=== PATIENT | female | born 1965 | race Caucasian/White ===

== ENCOUNTER → 2018-01-04 07:12 | Outpatient (CLI) | payer BC, SELFPAY ==
[2018-01-04 08:01] LABS: Hemoglobin A1C% w Est Avg Glu 7.1 % (4.0-6.0)
[2018-01-04 08:15] LABS: Alanine Aminotransferase 49 IU/L (9-52); Albumin 4.4 g/dL (3.5-5.0); Albumin Globulin Ratio 1.8 (1.0-2.8); Alkaline Phosphatase 77 U/L (38-126); Aspartate Aminotransferase 29 IU/L (14-36); Bilirubin Total 0.6 mg/dL (0.2-1.3); Blood Urea Nitrogen 13 mg/dL (7-17); Calcium 9.5 mg/dL (8.4-10.2); Carbon Dioxide 26 mmol/L (22-32); Chloride 100 mmol/L (98-107); Estimated Glomerular Filt Rate > 60.0 mL/min (>60); Globulin 2.5 g/dL (1.7-4.1); Glucose 143 mg/dL (70-100); HEMOLYSIS < 15 (0-50); Potassium 4.4 mmol/L (3.4-5.1); Sodium 140 mmol/L (137-145); Total Protein 6.9 g/dL (6.3-8.2)
== END ==
PROVIDERS: PCP Nurse Practitioner Family; Visit Provider Family Medicine
DX: E11.9 Type 2 diabetes mellitus without complications (principal); E78.2 Mixed hyperlipidemia
CPT/HCPCS: 36415; 80053; 83036

== ENCOUNTER → 2018-04-08 07:31 | Outpatient (CLI) | payer BC, SELFPAY ==
[2018-04-08 08:09] LABS: Hemoglobin A1C% w Est Avg Glu 7.4 % (4.0-6.0)
[2018-04-08 08:20] LABS: Cholesterol 116 mg/dL (140-199); HDL Cholesterol 35 mg/dL (40-60); LDL Cholesterol Calculated 44 mg/dL (<100); Triglycerides 187 mg/dL (35-150)
[2018-04-08 08:52] LABS: TSH w/ Reflex to FT4 2.05 uIU/mL (0.47-4.68)
[2018-05-03 13:31] VITALS: BMI 36.1
== END ==
PROVIDERS: Visit Provider Nurse Practitioner Family
DX: E11.9 Type 2 diabetes mellitus without complications (principal); E78.2 Mixed hyperlipidemia; E03.9 Hypothyroidism, unspecified
CPT/HCPCS: 36415; 80061; 83036; 84443

== ENCOUNTER → 2018-05-03 10:57 | Outpatient (CLI) | payer BC, SELFPAY ==
--- NOTE | 2018-05-24 10:46 | DIET.PN ---
DIABETES Nutrition Follow Up:? ASSESS:???52 yof? referred for type 2 diabetes nutrition counseling. Pt recently starting reading the Obesity Code. Since last visit pt has cut out all sugar and starches. She has increased her protein and vegetable intake. Reports weight loss, better control of blood glucose, and more overall energy. ? LABS: Per pt report:? a1c: 7.4 T TC: 116 LDL:44 HDL: 35 ? MEDS:?? metformin 1000mg BID Victoza QD ? DIET: Has cut out all sugar/starch. Increased pro, veg, and fat. ? Weight: 224.8 (from 231) Ht:? 67 ? Exercise:? Walking NUTRITION DX ? (1) Altered Nutrition related labs related to impaired glucose metabolism, lack of previous exposure to accurate nutrition information as evidenced by pt report, dx of diabetes, previous diet high in refined carbohydrates.? INTERVENTION(s): ??? (1) Reviewed pathophysiology of diabetes and impact of nutrition/diet on blood sugar control.? (2)Reviewed food record. Discussed avoiding replacing starches with high saturated fat substitutes. Discussed healthy fat snack ideas. ? (3) Reviewed lab values and blood glucose log. Numbers continue to decline with dietary changes and increased activity. Pt Goals: (1) Reduced A1c through dietary changes and increased activity (2) Reduced medication amount. MONITOR/EVALUATE: Pt will schedule follow up in 2 months following new labs.
== END ==
PROVIDERS: Visit Provider Nurse Practitioner Family
DX: I10 Essential (primary) hypertension (principal)
CPT/HCPCS: 97802

== ENCOUNTER → 2018-05-17 15:28 | Outpatient (CLI) | payer BC, SELFPAY ==
--- NOTE | 2018-05-17 | DI.MG.S_ITS ---
BILATERAL DIGITAL SCREENING MAMMOGRAM 3D/2D WITH CAD: 05/17/2018 CLINICAL: Routine screening. Comparison is made to exams dated: 05/07/2017 mammogram, 05/01/2016 mammogram, and 04/01/2015 mammogram - [facility]. The tissue of both breasts is predominantly fatty. Current study was also evaluated with a Computer Aided Detection (CAD) system. No significant masses, calcifications, or other findings are seen in either breast. There has been no significant interval change. IMPRESSION: NEGATIVE There is no mammographic evidence of malignancy. A 1 year screening mammogram is recommended. This exam was interpreted at Station ID: [id number]. NOTE: For mammograms, a report in lay terms will be sent to the patient. Approximately 15% of breast malignancies will not be visualized mammographically. In the management of a palpable breast mass, a negative mammogram must not discourage biopsy of a clinically suspicious lesion. Electronically Signed By: Tamir diallo/shawn:05/19/2018 02:55:07 copy to: Lexis Valenzuela letter sent: Normal Exam ACR BI-RADS Category 1: Negative 3341F
== END ==
PROVIDERS: Family Provider Obstetrics & Gynecology; Visit Provider Registered Nurse
DX: Z12.31 Encounter for screening mammogram for malignant neoplasm of breast (principal)
CPT/HCPCS: 77063; 77067

== ENCOUNTER → 2018-05-24 10:03 | Outpatient (CLI) | payer BC, SELFPAY | PROVIDERS: Family Provider Obstetrics & Gynecology; Visit Provider Nurse Practitioner Family | DX: E11.9 Type 2 diabetes mellitus without complications (principal) | CPT/HCPCS: 97803 ==

== ENCOUNTER → 2018-07-06 09:29 | Outpatient (CLI) | payer BC, SELFPAY ==
[2018-07-06 10:45] LABS: Hemoglobin A1C% w Est Avg Glu 6.3 % (4.0-6.0)
== END ==
PROVIDERS: Family Provider Obstetrics & Gynecology; PCP Registered Nurse; Visit Provider Registered Nurse
DX: E11.9 Type 2 diabetes mellitus without complications (principal)
CPT/HCPCS: 83036

== ENCOUNTER → 2018-12-06 07:25 | Outpatient (CLI) | payer BC, SELFPAY ==
[2018-12-06 08:03] LABS: Hemoglobin A1C% w Est Avg Glu 6.3 % (4.0-6.0)
[2018-12-06 09:37] LABS: Alanine Aminotransferase 29 IU/L (9-52); Albumin 4.2 g/dL (3.5-5.0); Albumin Globulin Ratio 1.7 (1.0-2.8); Alkaline Phosphatase 71 U/L (38-126); Aspartate Aminotransferase 20 IU/L (14-36); Bilirubin Total 0.4 mg/dL (0.2-1.3); Blood Urea Nitrogen 12 mg/dL (7-17); Calcium 9.5 mg/dL (8.4-10.2); Carbon Dioxide 28 mmol/L (22-32); Chloride 101 mmol/L (98-107); Cholesterol 147 mg/dL (140-199); Estimated Glomerular Filt Rate > 60.0 mL/min (>60); Globulin 2.5 g/dL (1.7-4.1); Glucose 115 mg/dL (70-100); HDL Cholesterol 36 mg/dL (40-60); HEMOLYSIS < 15 (0-50); LDL Cholesterol Calculated 68 mg/dL (<100); Potassium 4.8 mmol/L (3.4-5.1); Sodium 138 mmol/L (137-145); Total Protein 6.7 g/dL (6.3-8.2); Triglycerides 213 mg/dL (35-150)
[2018-12-06 10:05] LABS: Thyroid Stimulating Hormone 1.16 uIU/mL (0.47-4.68)
== END ==
PROVIDERS: PCP Registered Nurse; Visit Provider Registered Nurse
DX: E03.9 Hypothyroidism, unspecified (principal); E11.9 Type 2 diabetes mellitus without complications; E78.2 Mixed hyperlipidemia; I10 Essential (primary) hypertension
CPT/HCPCS: 36415; 80053; 80061; 83036; 84443

== ENCOUNTER → 2018-12-09 10:50 | Outpatient (CLI) | payer BC, SELFPAY ==
[2018-12-09 12:37] LABS: Creatinine Urine Random 20.9 mg/dL
[2018-12-09 12:48] LABS: Microalbumi Creatinin Ratio Ur 28.7 ug/mg CR (<30); Microalbumin Urine Random < 0.6 mg/dL (0-1.6)
== END ==
PROVIDERS: PCP Registered Nurse; Visit Provider Registered Nurse
DX: E11.9 Type 2 diabetes mellitus without complications (principal)
CPT/HCPCS: 82043; 82570

== ENCOUNTER 2018-12-27 06:43 | Day surgery (SDC) | payer BC, SELFPAY ==
--- NOTE | 2018-12-27 | PATH_ITS ---
[facility] Accession Number: [id number] . 01 Material submitted: . PART A: colon - COLON BIOPSY AT 30 CM PART B: rectum - RECTUM FLAT LESIONS . 02 Diagnosis: A. Biopsy, Colon at 30 cm: Hyperplastic polyp involving two biopsy fragments. Two polypoid-shaped fragments of colon mucosa associated with prominent mucosal lymphoid aggregates. . B. Biopsies, Rectum: Fragments of rectal mucosa with several prominent mucosal lymphoid aggregates. Negative for evidence of neoplasma and/or significant epithelial hyperplasia. MRV/12/30/2018 . 02 Electronically signed: . Remy Lewis MD, Pathologist NPI- [id number] . 01 Gross description: . Part A: COLON BIOPSY AT 30 CM: Received in formalin are 4 fragment(s) of low, soft tissue measuring 0.2 x 0.2 x 0.2 cm to 0.5 x 0.3 x 0.2 cm which is entirely submitted and submitted entirely in 1 cassette(s) Part B: RECTUM FLAT LESIONS: Received in formalin are multiple fragment(s) of low, soft tissue measuring 0.1 x 0.1 x 0.1 cm to 0.3 x 0.2 x 0.2 cm which is entirely submitted and submitted entirely in 1 cassette(s) /DMC /DMC . 02 Pathologist provided ICD-10: K63.5 . 02 CPT . 229789, 882108 Performed at: [facility] [address] [id number] MD Rod Steele MD Phone: [phone] Performed at: [facility] [address] [place], [place] [id number] MD Natalie Soler MD Phone: [phone]
[2018-12-27 07:27] VITALS: BP 125/76; PULSE 73; RESP 16; TEMP 36.9; O2SAT 95
[2018-12-27 07:30] VITALS: BMI 36.0
[2018-12-27] MEDS: SODIUM CHLORIDE 0.9% 1,000 ML 84 ML IV (07:41)
--- NOTE | 2018-12-27 07:48 | PM.HP.1 ---
History of Present Illness Date Patient Seen: 12/27/18 Time Patient Seen: 07:39 Chief complaint: [id number] Narrative: The patient is a woman here for a screening colonoscopy. This is her 1st exam. Patient History Medical History Depression (Chronic ~1989) Diabetes mellitus (Chronic 2002) GERD (gastroesophageal reflux disease) (Chronic ~1994) Hyperlipidemia (Chronic) Hypertriglyceridemia (Chronic) Hypothyroidism (Chronic ~1994) Rosacea (Chronic) Surgical History Status post endometrial ablation (Resolved ~2010) Status post tonsillectomy and adenoidectomy (Resolved 1983) Family History Father Age: 76 CAD (coronary artery disease) High cholesterol S/P CABG (coronary artery bypass graft) Grandfather CAD (coronary artery disease) CVA (cerebral vascular accident) Grandmother Age: 92 CAD (coronary artery disease) Hypertension Malignant neoplasm of uterus, unspecified site Grandfather Age: 74 CAD (coronary artery disease) Hypertension High cholesterol Grandmother Age: 98 Essential hypertension High cholesterol Social History household members: spouse Smoking Status: Never smoker alcohol intake: never substance use type: does not use Family & Social History Family History Father Age: 76 CAD (coronary artery disease) High cholesterol S/P CABG (coronary artery bypass graft) Grandfather CAD (coronary artery disease) CVA (cerebral vascular accident) Grandmother Age: 92 CAD (coronary artery disease) Hypertension Malignant neoplasm of uterus, unspecified site Grandfather Age: 74 CAD (coronary artery disease) Hypertension High cholesterol Grandmother Age: 98 Essential hypertension High cholesterol Social History: household members spouse Tobacco & Substance use: Smoking Status Never smoker alcohol intake never Meds Home Medications Medication Instructions Recorded Confirmed Type CA PANTOTHENATE/FOLIC ACID/VIT 1 tab PO Q DAY #0 05/31/11 12/27/18 History (MULTIVITAMIN) clobetasol-emollient 1 laila TOPICAL BID PRN #30 gm 05/01/16 12/27/18 Rx zolpidem 10 mg PO HSP #30 tab 10/17/17 12/09/18 Rx nystatin-triamcinolone 1 laila TOPICAL BID #30 gm 10/31/17 12/09/18 Rx omeprazole 20 mg capsule,delayed 20 mg PO QDAY #90 cap 01/08/18 12/09/18 Rx release fluocinolone 0.025 % topical cream 1 applictn TOP BID #15 gram 05/08/18 12/27/18 Rx metformin 1,000 mg tablet 1,000 mg PO BID #180 tab 09/24/18 12/27/18 Rx atorvastatin 20 mg tablet 20 mg PO HS #90 tab 10/16/18 12/27/18 Rx liraglutide 0.6 mg/0.1 mL (18 mg/3 0.6 mg SUBCUT DAILY #9 ml 11/29/18 12/27/18 Rx mL) subcutaneous pen injector levothyroxine 100 mcg tablet 100 mcg PO QDAY #30 tab 12/03/18 12/27/18 Rx Allergies Allergy/AdvReac Type Severity Reaction Status Date / Time No Known Drug Allergies Allergy Verified 12/27/18 07:42 Review of Systems Review of Systems All systems reviewed & are unremarkable except as noted in HPI and below Exam Vital Signs (past 8 hours): - 12/27/18 07:27 Temperature 98.4 F Pulse Rate 73 Respiratory Rate 16 Blood Pressure 125/76 Pulse Oximetry 95 Oxygen Delivery Method Room Air Narrative Exam Narrative: Pleasant cooperative patient no apparent distress. Lungs are clear to auscultation. No rales or rhonchi. Heart regular rate and rhythm no murmur gallop. Abdomen is soft nontender without mass. No obvious hernias. Patient is alert and oriented x3. Assessment & Plan Assessment & Plan narrative: The patient for a screening colonoscopy. I have discussed the procedure with them. Risks of bleeding, perforation which would necessitate major operation, failure to find remove all lesions, the potential tattoo were all discussed. All questions were answered. They wished to proceed.
--- NOTE | 2018-12-27 07:49 | PM.PREOP ---
Pre-operative Note Interval Note History & Physical reviewed/Exam performed by Physician: Yes Changes to H&P: No ASA Class (for procedural sedation): II
--- NOTE | 2018-12-27 08:37 | PM.OP.ENDO ---
Operative Date/Time/Diagnoses Date of procedure: 12/27/18 Time of procedure: 08:37 Pre-op diagnosis: Screening exam for colon cancer Post-op diagnosis: same (Multiple tiny lesions possibly neoplastic) Procedure & Clinicians Study performed: Colonoscopy with cold biopsy Same procedure as scheduled: Yes Indications: Screening due to age 53. This is her 1st exam. Surgeon: Carlos Blanchard Procedure Notes SCOAP/Timeout: Performed Procedure in detail: The patient was placed in the left lateral decubitus position and underwent IV sedation directed by the surgeon consisting of fentanyl and Versed. Digital exam was unremarkable. The scope was inserted and advanced through the rectum into the sigmoid, descending, transverse, and ascending colon. Pressure was applied the patient was repositioned in order to make her way into the cecum. A stiffener was also inserted. The cecum was reached identified by the ileocecal valve and the appendiceal opening. The ileocecal valve was successfully cannulated. The terminal ileum was normal in appearance. The scope was gradually brought out. Small Polypoid lesions were found at 20 to 30 cm(5 of them). These may or may not be neoplastic however. There were quite small. All were placed in the same container due to the proximity to 1 another. When I entered the rectum there was a flat area in which the mucosa looked different than the surrounding mucosa. I decided randomly biopsied this to make sure it was not a flat serrated adenoma or villous adenoma. I strongly suspect this distal normal variant or trauma related to the scope sliding over it. To be certain however I did biopsies. The scope ultimately was retroflexed in the rectum. The appearance was normal. The scope was removed and the patient tolerated the procedure well. Prep was excellent. Scope withdrawal time: 10 min(excludes bx time) Sedation minutes: 37 Findings: polyp Specimen(s): other (Polypoid lesions and rectal biopsy) Complications: none Recommendations: Colonscopy in 5 years (If none of the lesions are neoplastic than 10 years would be more appropriate.) Follow up: as needed Disposition: PACU
[2018-12-27] MEDS: MIDAZOLAM 5 MG/5 ML VIAL IV (08:38)
[2018-12-27] MEDS: fentaNYL 250 MCG/5 ML INJ IV (08:38)
[2018-12-27 08:40] VITALS: BP 129/54; PULSE 73; RESP 10; TEMP 36.8; O2SAT 94
[2018-12-27 08:45] VITALS: BP 112/54; PULSE 74; RESP 11; O2SAT 94
[2018-12-27 08:51] VITALS: BP 118/59; PULSE 75; RESP 12; O2SAT 98
[2018-12-27 08:54] VITALS: BP 106/57; PULSE 75; RESP 16; TEMP 36.3; O2SAT 98
[2018-12-27 09:17] VITALS: BP 110/75; PULSE 67; RESP 16; TEMP 36.1; O2SAT 99
--- NOTE | 2018-12-27 09:23 | SUR.PHASEII ---
stable phase 2, dressed when ready left when ready and in stable condition.
== END 2018-12-27 09:20 | disposition home or self-care (01) ==
PROVIDERS: PCP Registered Nurse; Visit Provider Specialist
PROC: 0DJD8ZZ Inspection of Lower Intestinal Tract, Via Natural or Artificial Opening Endoscopic (ICD-10-PCS; CPT 45378; principal; 2018-12-27 07:45)
DX: Z12.11 Encounter for screening for malignant neoplasm of colon (principal); K63.5 Polyp of colon; E11.9 Type 2 diabetes mellitus without complications; E78.5 Hyperlipidemia, unspecified; E03.9 Hypothyroidism, unspecified; F32.9 Major depressive disorder, single episode, unspecified; Z79.4 Long term (current) use of insulin
CPT/HCPCS: 45380; 99152; 99153; J2250; J3010

== ENCOUNTER → 2019-01-24 09:06 | Outpatient (CLI) | payer BC, SELFPAY ==
[2019-01-24 10:29] LABS: Add Manual Diff / Slide Review NO; Basophils Absolute Auto 0 /uL (0-100); Basophils Percent Auto 0.7 % (0-2); Eosinophils Absolute Auto 200 /uL (0-450); Eosinophils Percent Auto 3.3 % (2-4); Hematocrit 37.6 % (36-46); Hemoglobin 12.9 g/dL (12.0-16.0); Lymphocytes Absolute Auto 1600 /uL (1100-4500); Lymphocytes Percent Auto 29.2 % (25-40); Mean Corpuscular HGB Conc 34.4 % (30-36); Mean Corpuscular Volume 84.3 fL (80-100); Monocytes Absolute Auto 500 /uL (0-900); Monocytes Percent Auto 9.2 % (3-14); Neutrophils Absolute Auto 3100 /uL (1500-7000); Neutrophils Percent Auto 57.6 % (50-75); Platelet Count 222 X10^3/uL (150-400); Red Blood Cell Count 4.46 X10^6/uL (4.0-5.2); Red Cell Distribution Width 13.7 % (11.6-14.8); White Blood Cell Count 5.4 X10^3/uL (4.5-11.0)
[2019-01-24 10:48] LABS: Hemoglobin A1C% w Est Avg Glu 6.5 % (4.0-6.0)
[2019-01-24 11:04] LABS: Alanine Aminotransferase 30 IU/L (9-52); Albumin 4.2 g/dL (3.5-5.0); Albumin Globulin Ratio 1.6 (1.0-2.8); Alkaline Phosphatase 79 U/L (38-126); Amylase 57 U/L (30-110); Aspartate Aminotransferase 24 IU/L (14-36); Bilirubin Total 0.3 mg/dL (0.2-1.3); Blood Urea Nitrogen 12 mg/dL (7-17); Calcium 9.3 mg/dL (8.4-10.2); Carbon Dioxide 28 mmol/L (22-32); Chloride 104 mmol/L (98-107); Estimated Glomerular Filt Rate > 60.0 mL/min (>60); Globulin 2.7 g/dL (1.7-4.1); Glucose 120 mg/dL (70-100); HEMOLYSIS < 15 (0-50); Lipase 193 U/L (23-300); Potassium 4.5 mmol/L (3.4-5.1); Sodium 141 mmol/L (137-145); Total Protein 6.9 g/dL (6.3-8.2)
[2019-01-24 11:35] LABS: Thyroid Stimulating Hormone 0.53 uIU/mL (0.47-4.68)
== END ==
PROVIDERS: PCP Registered Nurse; Visit Provider Registered Nurse
DX: R10.9 Unspecified abdominal pain (principal); E11.9 Type 2 diabetes mellitus without complications; E03.9 Hypothyroidism, unspecified
CPT/HCPCS: 36415; 80053; 82150; 83036; 83690; 84443; 85025

== ENCOUNTER → 2019-02-04 07:02 | Outpatient (CLI) | payer BC, SELFPAY ==
--- NOTE | 2019-02-04 09:44 | DI.CT.S_ITS ---
PROCEDURE: CT ABDOMEN PELVIS W CON INDICATIONS: Abdominal distension, bloating TECHNIQUE: After the administration of oral and intravenous contrast, 5 mm thick sections acquired from the diaphragms to the symphysis. 5 mm thick coronal and sagittal reformats were performed. For radiation dose reduction, the following was used: automated exposure control, adjustment of mA and/or kV according to patient size. COMPARISON: [facility], CT, ABDOMEN/PELVIS WITH CONTRAST, 10/06/2008, 13:23. FINDINGS: Image quality: Excellent. ABDOMEN: Lung bases: Lung bases are clear. Heart size is normal. Solid organs: Liver is normal in size and diffusely hypodense suggesting fatty infiltration. Gallbladder is unremarkable. Biliary system is non-dilated. Pancreas enhances normally. Spleen is normal in size and enhancement. No adrenal nodules. Kidneys are normal in size and enhancement, without hydronephrosis. There is a 9 mm nonobstructing calculus within the midpole of the right kidney. Peritoneum and bowel: Stomach, small bowel, and colon loops are normal in caliber and wall thickness. The appendix is not visualized; however surgical clips are present in the region of the cecum in the lower quadrant suggesting prior appendectomy. No free fluid or air. Nodes and vessels: No retroperitoneal or mesenteric adenopathy. Aorta and inferior vena cava are normal in caliber. Miscellaneous: No ventral hernias. PELVIS: Genitourinary: Bladder wall thickness is normal. The uterus and ovaries are grossly unremarkable. Miscellaneous: No inguinal hernias or adenopathy. Bones: No suspicious bony lesions. No vertebral body compression fractures. IMPRESSION: 1. No acute intra-abdominal findings. No findings to explain patient's symptoms. 2. Normal appendix. 3. Nonobstructive right nephrolithiasis. 4. Hepatic steatosis. Dictated by: Kiah Gil M.D. on 02/04/2019 at 10:49 Approved by: Kiah Gil M.D. on 02/04/2019 at 10:54
== END ==
PROVIDERS: PCP Registered Nurse; Visit Provider Registered Nurse
DX: R14.0 Abdominal distension (gaseous) (principal); N20.0 Calculus of kidney; K76.0 Fatty (change of) liver, not elsewhere classified; R10.9 Unspecified abdominal pain
CPT/HCPCS: 74177; Q9967

== ENCOUNTER → 2019-07-28 15:14 | Outpatient (CLI) | payer BC, SELFPAY ==
--- NOTE | 2019-07-28 | DI.MG.S_ITS ---
BILATERAL DIGITAL SCREENING MAMMOGRAM 3D/2D WITH CAD: 07/28/2019 CLINICAL: Routine screening. Comparison is made to exams dated: 05/17/2018 mammogram, 05/07/2017 mammogram, and 05/01/2016 mammogram - [facility]. The tissue of both breasts is predominantly fatty. Current study was also evaluated with a Computer Aided Detection (CAD) system. No significant masses, calcifications, or other findings are seen in either breast. There has been no significant interval change. IMPRESSION: NEGATIVE There is no mammographic evidence of malignancy. A 1 year screening mammogram is recommended. This exam was interpreted at Station ID: [id number]. NOTE: For mammograms, a report in lay terms will be sent to the patient. Approximately 15% of breast malignancies will not be visualized mammographically. In the management of a palpable breast mass, a negative mammogram must not discourage biopsy of a clinically suspicious lesion. Electronically Signed By: Kiah sethi/shawn:07/28/2019 15:46:44 copy to: Lexis Valenzuela letter sent: Normal Exam ACR BI-RADS Category 1: Negative 3341F
== END ==
PROVIDERS: PCP Registered Nurse; Visit Provider Registered Nurse
DX: Z12.31 Encounter for screening mammogram for malignant neoplasm of breast (principal)
CPT/HCPCS: 77063; 77067

== ENCOUNTER → 2019-09-01 07:54 | Outpatient (CLI) | payer BC, SELFPAY | PROVIDERS: PCP Registered Nurse; Referring Provider Registered Nurse; Visit Provider Registered Nurse | DX: E11.9 Type 2 diabetes mellitus without complications (principal); E03.9 Hypothyroidism, unspecified | CPT/HCPCS: 36415; 83036; 84443 ==

== ENCOUNTER → 2020-02-13 06:58 | Outpatient (CLI) | payer BC, SELFPAY ==
[2020-02-13 08:32] LABS: Hemoglobin A1C% w Est Avg Glu 7.6 % (4.0-6.0)
== END ==
PROVIDERS: PCP Registered Nurse; Referring Provider Registered Nurse; Visit Provider Registered Nurse
DX: E11.9 Type 2 diabetes mellitus without complications (principal)
CPT/HCPCS: 36415; 83036

== ENCOUNTER → 2020-05-15 08:01 | Outpatient (CLI) | payer BC, SELFPAY ==
[2020-05-15 09:33] LABS: Alanine Aminotransferase 30 IU/L (<35); Albumin 4.2 g/dL (3.5-5.0); Albumin Globulin Ratio 1.5 (1.0-2.8); Alkaline Phosphatase 81 U/L (38-126); Aspartate Aminotransferase 28 IU/L (14-36); BUN Creatinine Ratio 32.8 (6-22); Bilirubin Total 0.4 mg/dL (0.2-1.3); Blood Urea Nitrogen 19 mg/dL (7-17); Calcium 9.2 mg/dL (8.4-10.2); Carbon Dioxide 29 mmol/L (22-32); Chloride 103 mmol/L (98-107); Cholesterol 144 mg/dL (140-199); Estimated Glomerular Filt Rate > 60.0 mL/min (>60); Globulin 2.8 g/dL (1.7-4.1); Glucose 114 mg/dL (70-100); HDL Cholesterol 36 mg/dL (40-60); HEMOLYSIS < 15 (0-50); LDL Cholesterol Calculated 82 mg/dL (<100); Potassium 4.1 mmol/L (3.4-5.1); Sodium 136 mmol/L (137-145); Triglycerides 132 mg/dL (35-150)
[2020-05-15 09:34] LABS: Hemoglobin A1C% w Est Avg Glu 6.7 % (4.0-6.0)
[2020-05-15 09:57] LABS: Microalbumin Urine Random < 0.6 mg/dL (0-1.6)
[2020-05-15 10:21] LABS: TSH w/ Reflex to FT4 1.41 uIU/mL (0.47-4.68)
== END ==
PROVIDERS: PCP Registered Nurse; Referring Provider Registered Nurse; Visit Provider Registered Nurse
DX: E11.9 Type 2 diabetes mellitus without complications (principal); E78.2 Mixed hyperlipidemia; E03.9 Hypothyroidism, unspecified
CPT/HCPCS: 36415; 80053; 80061; 82043; 82570; 83036; 84443

== ENCOUNTER → 2020-05-24 10:44 | Outpatient (CLI) | payer BC, SELFPAY ==
--- NOTE | 2020-05-24 10:45 | DI.US.S_ITS ---
PROCEDURE: US CHEST COMPARISON: None. INDICATIONS: POINT TENDERNESS IN LEFT ANTERIOR LOWER CHEST REGION FINDINGS: No abnormality seen by ultrasound in the area of patient directed identified area of palpable concern. Depending on the clinical status follow-up by advanced imaging may become necessary IMPRESSION: No lesion seen by ultrasound. Follow-up by contrast-enhanced MR scanning could be utilized for additional assessment through the area of concern if clinically indicated. Dictated by: Marcello Tejada M.D. on 05/24/2020 at 13:08 Approved by: Marcello Tejada M.D. on 05/24/2020 at 13:14
== END ==
PROVIDERS: PCP Registered Nurse; Referring Provider Specialist; Visit Provider Specialist
DX: M79.89 Other specified soft tissue disorders (principal)
CPT/HCPCS: 76604

== ENCOUNTER → 2020-08-09 16:21 | Outpatient (CLI) | payer BC, SELFPAY ==
--- NOTE | 2020-08-09 16:26 | DI.MG.S_ITS ---
BILATERAL DIGITAL SCREENING MAMMOGRAM 3D/2D WITH CAD: 08/09/2020 CLINICAL: Routine screening. Comparison is made to exams dated: 07/28/2019 mammogram, 05/17/2018 mammogram, and 05/07/2017 mammogram - [facility]. The tissue of both breasts is predominantly fatty. Current study was also evaluated with a Computer Aided Detection (CAD) system. No significant masses, calcifications, or other findings are seen in either breast. There has been no significant interval change. IMPRESSION: NEGATIVE There is no mammographic evidence of malignancy. A 1 year screening mammogram is recommended. This exam was interpreted at Station ID: [id number]. NOTE: For mammograms, a report in lay terms will be sent to the patient. Approximately 15% of breast malignancies will not be visualized mammographically. In the management of a palpable breast mass, a negative mammogram must not discourage biopsy of a clinically suspicious lesion. Electronically Signed By: Grace tabor/shawn:08/09/2020 16:56:44 copy to: Lexis Valenzuela letter sent: Normal Exam ACR BI-RADS Category 1: Negative 3341F
== END ==
PROVIDERS: PCP Registered Nurse; Referring Provider Registered Nurse; Visit Provider Registered Nurse
DX: Z12.31 Encounter for screening mammogram for malignant neoplasm of breast (principal)
CPT/HCPCS: 77063; 77067

== ENCOUNTER → 2020-08-13 08:10 | Outpatient (CLI) | payer BC, SELFPAY ==
[2020-08-13 09:26] LABS: Cholesterol 127 mg/dL (140-199); HDL Cholesterol 38 mg/dL (40-60); LDL Cholesterol Calculated 65 mg/dL (<100); Triglycerides 121 mg/dL (35-150)
[2020-08-16 11:17] LABS: Hemoglobin A1C% w Est Avg Glu 6.9 % (4.0-6.0)
== END ==
PROVIDERS: PCP Registered Nurse; Referring Provider Registered Nurse; Visit Provider Registered Nurse
DX: E78.6 Lipoprotein deficiency (principal)
CPT/HCPCS: 36415; 80061; 83036

== ENCOUNTER → 2020-09-27 13:15 | Outpatient (CLI) | payer BC, SELFPAY | PROVIDERS: PCP Registered Nurse; Referring Provider Registered Nurse; Visit Provider Registered Nurse | DX: Z78.0 Asymptomatic menopausal state (principal); E07.9 Disorder of thyroid, unspecified; E11.9 Type 2 diabetes mellitus without complications; Z82.62 Family history of osteoporosis | CPT/HCPCS: 77080 ==

== ENCOUNTER → 2020-09-30 08:05 | Outpatient (CLI) | payer BC, SELFPAY ==
[2020-09-30] MEDS: COVID-19 VACC, Ad26(JANSSEN)/PF 0.5 ML IM (08:10)
== END ==
PROVIDERS: PCP Registered Nurse; Visit Provider Internal Medicine
DX: Z23 Encounter for immunization (principal)
CPT/HCPCS: 0031A; 91303

== ENCOUNTER → 2020-10-08 07:20 | Outpatient (CLI) | payer BC, SELFPAY ==
[2020-10-08 07:51] LABS: COVID19 -Nasal RAPID Negative (Negative)
== END ==
PROVIDERS: PCP Registered Nurse; Visit Provider Physician Assistant
DX: R50.9 Fever, unspecified (principal); Z20.822 Contact with and (suspected) exposure to COVID-19
CPT/HCPCS: 87635

== ENCOUNTER → 2020-10-14 | Outpatient (CLI) | payer BC, SELFPAY ==
[2020-10-14] MEDS: SODIUM CHLORIDE 0.9% FLUSH 10 ML IV (11:51)
[2020-10-14] MEDS: BAMLANIVIMAB 700 MG in SODIUM CHLORIDE 0.9% 180 ML 133.333 ML IV (12:14)
[2020-10-14 12:25] VITALS: BP 135/71; PULSE 71; RESP 16; TEMP 37.2
[2020-10-14 12:40] VITALS: BP 149/62; PULSE 67; RESP 18; TEMP 36.8
[2020-10-14 14:06] VITALS: BP 129/57; PULSE 68; RESP 18; TEMP 36.5; O2SAT 96
[2020-10-14 15:27] VITALS: BP 143/63; PULSE 74; RESP 17; TEMP 36.7; O2SAT 99
== END ==
PROVIDERS: PCP Registered Nurse; Referring Provider Internal Medicine; Visit Provider Internal Medicine
DX: U07.1 COVID-19 (principal); E11.9 Type 2 diabetes mellitus without complications
CPT/HCPCS: M0239

== ENCOUNTER → 2020-12-21 08:34 | Outpatient (CLI) | payer BC, SELFPAY ==
[2020-12-21 09:14] LABS: Hemoglobin A1C% w Est Avg Glu 6.5 % (4.0-6.0)
[2020-12-21 09:49] LABS: Alanine Aminotransferase 27 IU/L (<35); Albumin 4.4 g/dL (3.5-5.0); Albumin Globulin Ratio 1.6 (1.0-2.8); Alkaline Phosphatase 71 U/L (38-126); Aspartate Aminotransferase 32 IU/L (14-36); BUN Creatinine Ratio 27.9 (6-22); Bilirubin Total 0.1 mg/dL (0.2-1.3); Blood Urea Nitrogen 17 mg/dL (7-17); Calcium 9.6 mg/dL (8.4-10.2); Carbon Dioxide 24 mmol/L (22-32); Chloride 104 mmol/L (98-107); Estimated Glomerular Filt Rate > 60.0 mL/min (>60); Globulin 2.7 g/dL (1.7-4.1); Glucose 123 mg/dL (70-100); HEMOLYSIS < 15 (0-50); Potassium 4.7 mmol/L (3.4-5.1); Sodium 138 mmol/L (137-145); Total Protein 7.1 g/dL (6.3-8.2)
[2020-12-21 09:52] LABS: Creatinine Urine Random 20.5 mg/dL
[2020-12-21 10:07] LABS: Microalbumin Urine Random < 0.6 mg/dL (0-1.6)
[2020-12-21 10:20] LABS: Thyroid Stimulating Hormone 0.848 uIU/mL (0.47-4.68)
== END ==
PROVIDERS: PCP Registered Nurse; Referring Provider Registered Nurse; Visit Provider Registered Nurse
DX: E11.9 Type 2 diabetes mellitus without complications (principal); E03.9 Hypothyroidism, unspecified
CPT/HCPCS: 36415; 80053; 82043; 82570; 83036; 84443

== ENCOUNTER → 2021-01-10 09:37 | Outpatient (CLI) | payer BC, SELFPAY ==
[2021-01-10 11:54] LABS: Cancer Antigen 125 7.9 U/mL (0-35)
== END ==
PROVIDERS: PCP Registered Nurse; Referring Provider Obstetrics & Gynecology; Visit Provider Obstetrics & Gynecology
DX: R14.0 Abdominal distension (gaseous) (principal)
CPT/HCPCS: 36415; 86304

== ENCOUNTER → 2021-02-02 08:05 | Outpatient (CLI) | payer BC, SELFPAY ==
[2021-02-02 09:42] LABS: Add Manual Diff / Slide Review NO; Basophils Absolute Auto 0 /uL (0-100); Basophils Percent Auto 0.7 % (0-2); Eosinophils Absolute Auto 100 /uL (0-450); Eosinophils Percent Auto 2.3 % (2-4); Hematocrit 32.3 % (36-46); Hemoglobin 10.2 g/dL (12.0-16.0); Lymphocytes Absolute Auto 1300 /uL (1100-4500); Lymphocytes Percent Auto 29.9 % (25-40); Mean Corpuscular HGB Conc 31.7 % (30-36); Mean Corpuscular Hemoglobin 22.5 PG (26-34); Mean Corpuscular Volume 70.9 fL (80-100); Monocytes Absolute Auto 400 /uL (0-900); Monocytes Percent Auto 9.1 % (3-14); Neutrophils Absolute Auto 2500 /uL (1500-7000); Platelet Count 287 X10^3/uL (150-400); Red Blood Cell Count 4.55 X10^6/uL (4.0-5.2); White Blood Cell Count 4.3 X10^3/uL (4.5-11.0)
[2021-02-02 10:20] LABS: Alanine Aminotransferase 20 IU/L (<35); Albumin 4.2 g/dL (3.5-5.0); Albumin Globulin Ratio 1.6 (1.0-2.8); Alkaline Phosphatase 77 U/L (38-126); Aspartate Aminotransferase 26 IU/L (14-36); BUN Creatinine Ratio 25.9 (6-22); Bilirubin Total 0.3 mg/dL (0.2-1.3); Blood Urea Nitrogen 15 mg/dL (7-17); Calcium 9.6 mg/dL (8.4-10.2); Carbon Dioxide 28 mmol/L (22-32); Chloride 102 mmol/L (98-107); Estimated Glomerular Filt Rate > 60.0 mL/min (>60); Globulin 2.6 g/dL (1.7-4.1); Glucose 108 mg/dL (70-100); HEMOLYSIS < 15 (0-50); Lipase 121 U/L (23-300); Potassium 4.6 mmol/L (3.4-5.1); Sodium 138 mmol/L (137-145); Total Protein 6.8 g/dL (6.3-8.2)
[2021-02-02 10:21] LABS: Amylase 48 U/L (30-110)
== END ==
PROVIDERS: Obstetrics & Gynecology; PCP Registered Nurse; Referring Provider Registered Nurse; Visit Provider Registered Nurse
DX: R10.9 Unspecified abdominal pain (principal); R53.83 Other fatigue; D64.9 Anemia, unspecified
CPT/HCPCS: 36415; 80053; 82150; 83690; 85025

== ENCOUNTER → 2021-02-04 09:11 | Outpatient (CLI) | payer BC, SELFPAY ==
--- NOTE | 2021-02-04 09:12 | DI.US.S_ITS ---
PROCEDURE: US ABDOMEN COMPLETE INDICATIONS: PAIN; INDIGESTION TECHNIQUE: Real-time scanning was performed of the abdominal and retroperitoneal organs, with image documentation. COMPARISON: None. FINDINGS: This study is limited by body habitus. Liver: The liver demonstrates increased size. The liver demonstrates generalized moderately increased echogenicity. This decreases ultrasound sensitivity for detection of hepatic masses. Gallbladder: There is a mobile, 6 mm stone seen. The gallbladder wall is not thickened, measuring 3 mm or less. No specific pericholecystic fluid is seen. The sonographic Helm sign is negative. Biliary ducts: Intrahepatic bile ducts are non-dilated. Extrahepatic bile duct caliber measures 6 mm. Normal is 6-7 mm or less in diameter, or 10 mm or less post-cholecystectomy. Pancreas: Not seen, obscured by overlying bowel gas. Spleen: Spleen is normal in size and homogeneous in echotexture. Kidneys: Kidneys are normal in size and echotexture. Right kidney measures 11.9 cm long; left kidney measures 11.7 cm long. No hydronephrosis or nephrolithiasis. No solid masses. Aorta: Visualized aorta is normal in caliber at less than 3 cm. Iliacs: Proximal common iliac arteries are normal in caliber at less than 2.5 cm. IVC: Intrahepatic inferior vena cava is patent. Miscellaneous: No free abdominal fluid. IMPRESSION: A single mobile gallstone is seen, yet without additional sonographic signs of cholecystitis. Negative for biliary dilatation. Please correlate with physical examination findings, patient presentation, and laboratory values. Fatty liver infiltration. Dictated by: Adolfo Silva M.D. on 02/04/2021 at 9:30 Approved by: Adolfo Silva M.D. on 02/04/2021 at 9:31
== END ==
PROVIDERS: PCP Registered Nurse; Referring Provider Registered Nurse; Visit Provider Registered Nurse
DX: R10.9 Unspecified abdominal pain (principal); K30 Functional dyspepsia; K80.20 Calculus of gallbladder without cholecystitis without obstruction; K76.0 Fatty (change of) liver, not elsewhere classified
CPT/HCPCS: 76700

== ENCOUNTER → 2021-02-11 07:22 | Outpatient (CLI) | payer BC, SELFPAY ==
[2021-02-11 09:05] LABS: Total Iron Binding Capacity 394 ug/dL (265-497)
[2021-02-11 09:22] LABS: Ferritin 7 ng/mL (11-264)
== END ==
PROVIDERS: PCP Registered Nurse; Referring Provider Registered Nurse; Visit Provider Registered Nurse
DX: D64.9 Anemia, unspecified (principal)
CPT/HCPCS: 36415; 82728; 83550

== ENCOUNTER → 2021-02-28 10:56 | Outpatient (CLI) | payer BC, SELFPAY ==
[2021-02-28 16:35] LABS: COVID19 -Nasal RAPID Negative (Negative)
== END ==
PROVIDERS: Nurse Practitioner; PCP Registered Nurse; Visit Provider Obstetrics & Gynecology
DX: Z01.812 Encounter for preprocedural laboratory examination (principal); Z20.822 Contact with and (suspected) exposure to COVID-19
CPT/HCPCS: 87635

== ENCOUNTER 2021-03-02 08:34 | Day surgery (SDC) | payer BC, SELFPAY ==
[2021-03-02] VITALS (8 sets, daily range): BP systolic 113–143; BP diastolic 62–78; PULSE 64–77; RESP 12–16; TEMP 36.2–36.8; O2SAT 91–98; BMI 36.0
--- NOTE | 2021-03-02 | PATH_ITS ---
[facility] Accession Number: [id number] . 01 Material submitted: . PART A: small bowel - SMALL BOWEL PART B: gastrointestinal site - GASTRIC PART C: gastrointestinal site - GASTRIC LARGE POLYP . 01 Clinical history: . A: R/O CELAIC DISEASE B: R/O HP . 02 Diagnosis: A. Small Bowel, Biopsy: Duodenal mucosa with no diagnostic abnormality. Negative for active inflammation, features of sprue, dysplasia, or malignancy. . B. Stomach, Biopsy: Fundic gland polyp, one fragment. Separate fragments of antral and body-type mucosa with mild chronic gastritis. Negative for Helicobacter by immunohistochemistry. Negative for intestinal metaplasia. Negative for dysplasia and malignancy. . C. Stomach, Large Polyp, Biopsy: Body-type mucosa with mild chronic inflammation and proton-pump inhibitor-like changes. Negative for Helicobacter by immunohistochemistry. Negative for intestinal metaplasia. Negative for dysplasia and malignancy. [facility] 03/07/2021 1545 Local . 02 Comment: . . 02 Electronically signed: . Natalie Soler MD, Pathologist NPI- [id number] . 01 Gross description: . Part A: SMALL BOWEL: Received in formalin are 2 fragment(s) of low, soft tissue measuring 0.3 x 0.2 x 0.2 cm to 0.3 x 0.2 x 1 cm submitted entirely in 1 cassette(s) Part B: GASTRIC: Received in formalin are 3 fragment(s) of low, soft tissue measuring 0.4 x 0.3 x 0.1 cm to 0.3 x 0.1 x 0.1 cm submitted entirely in 1 cassette(s) Part C: GASTRIC LARGE POLYP: Received in formalin are multiple fragment(s) of low, soft tissue measuring 0.8 x 0.3 x 0.1 cm in aggregate submitted entirely in 1 cassette(s) /[facility] 03/03/2021 0426 Local . 02 Microscopic: . B-C. Immunohistochemical stains for Helicobacter were performed on blocks B and C in order to evaluate for Helicobacter organisms and are both negative. The control stain showed appropriate reactivity. . . * This test was developed and its performance characteristics determined by [facility]. It has not been cleared or approved by the U.S. Food and Drug Administration. The FDA has determined that such clearance or approval is not necessary. This test is used for clinical purposes. It should not be regarded as investigational or for research. . 02 Pathologist provided ICD-10: K21.9, D50.9 . 02 CPT . 093381, 618390, 938041, S04974 Performed at: 01 [facility] [address] [id number] MD Rod Steele MD Phone: [phone] Performed at: 02 [facility] [address] [place] [id number] MD Natalie Soler MD Phone: [phone]
[2021-03-02] MEDS: SODIUM CHLORIDE 0.9% 1,000 ML 84 ML IV (09:01)
--- NOTE | 2021-03-02 09:01 | PM.HP.1 ---
History of Present Illness History of Present Illness Date Patient Seen: 03/02/21 [place] [facility] [place] History Medical History Abdominal pain Depression (~1989) Diabetes mellitus (2002) GERD (gastroesophageal reflux disease) (~1994) Hyperlipidemia Hypertriglyceridemia Hypothyroidism (~1994) Postmenopausal state Rosacea Surgical History Status post endometrial ablation (~2010) Status post tonsillectomy and adenoidectomy (1983) Family & Social History Family History Father Age: 78 CAD (coronary artery disease) High cholesterol S/P CABG (coronary artery bypass graft) Grandfather CAD (coronary artery disease) CVA (cerebral vascular accident) Grandmother Age: 94 CAD (coronary artery disease) Hypertension Malignant neoplasm of uterus, unspecified site Grandfather Age: 76 CAD (coronary artery disease) Hypertension High cholesterol Grandmother Age: 100 Essential hypertension High cholesterol Social History: household members spouse Tobacco & Substance use: Smoking Status Never smoker alcohol intake current alcohol intake frequency holiday/special occasion Substance Use Type does not use Meds Home Medications and Allergies Home Medications Medication Instructions Recorded Confirmed Type CA PANTOTHENATE/FOLIC ACID/VIT 1 tab PO Q DAY #0 05/31/11 03/02/21 History (MULTIVITAMIN) fluocinolone 0.025 % topical cream 1 applic TOP BID #15 gram 06/07/20 02/14/21 Rx metformin 1,000 mg tablet 1,000 mg PO BID #180 tab 06/07/20 03/02/21 Rx omeprazole 20 mg capsule,delayed 20 mg PO QDAY #90 cap 06/07/20 03/02/21 Rx release glipizide 5 mg tablet 2.5 mg PO DAILY tab 08/16/20 03/02/21 History BD Ultra Fine Pen Tips 31G x 8mm #2 ea 09/29/20 02/14/21 Rx pen needle, diabetic 32 gauge x #100 ea 10/12/20 02/14/21 Rx 5/16 (Droplet Pen Needle) atorvastatin 20 mg tablet (Lipitor) 20 mg PO HS #90 tab 12/15/20 03/02/21 Rx dulaglutide 0.75 mg/0.5 mL 0.75 mg SUBCUT QWEEK #2 ml 01/31/21 03/02/21 Rx subcutaneous pen injector (Trulicity) ferrous sulfate 325 mg (65 mg 325 mg PO DAILY 02/02/21 03/02/21 History iron) tablet (FeroSul) levothyroxine 100 mcg tablet 100 mcg PO QDAY #90 tab 02/16/21 03/02/21 Rx Allergies Allergy/AdvReac Type Severity Reaction Status Date / Time No Known Drug Allergies Allergy Verified 12/21/20 08:18 Exam Vital Signs (past 8 hours): - 03/02/21 08:44 Temperature 97.4 F L Pulse Rate 77 Respiratory Rate 16 Blood Pressure 136/74 Pulse Oximetry 98 Oxygen Delivery Method Room Air Narrative Exam Narrative: Oropharynx free of lesions Chest clear to auscultation percussion Cardiac exam reveals no S3 or murmur Assessment & Plan Assessment & Plan narrative: GE reflux with occasional dark stools and microcytic anemia of rule out esophagitis. EGD to be performed. Risks, benefits, alternatives have been explained.
--- NOTE | 2021-03-02 09:02 | PM.OP.ENDO ---
Operative Date/Time/Diagnoses Date of procedure: 03/02/21 Pre-op diagnosis: See indication and findings Procedure & Clinicians Study performed: EGD Indications: Microcytic anemia GE reflux and occasional dark stools Surgeon: Yulissa Eisenberg Procedure Notes Procedure in detail: After informed consent was obtained patient was placed in the left lateral decubitus position. The video upper scope was placed into the oropharynx and with the patient's help swallowed the esophagus. The esophagus stomach and duodenum were carefully examined. On withdrawal, retroflexed view the GE junction was performed. The scope was removed. The patient tolerated procedure well. Blood loss none Complications none Sedation 15 minutes Versed 4 mg fentanyl 100 micro g IV titration Findings 1. Grade A esophagitis with 1 small erosion at the squamocolumnar junction. No evidence for Patten's esophagus or larger ulcerations. 2. Multiple gastric polyps biopsied along with antral and body mucosa to rule out Helicobacter mild patchy erythema seen in the antrum. 3. Larger, firmer polyp in the mid body approximately 2 cm in size. Bite on bite biopsies were performed. 4. Normal duodenal bulb and sweep biopsies taken to rule out celiac Well there were some findings present none of them would explain her anemia. We will await biopsies but she will certainly need repeat colonoscopy.
[2021-03-02] MEDS: MIDAZOLAM 5 MG/5 ML VIAL IV (09:13)
[2021-03-02] MEDS: fentaNYL 250 MCG/5 ML INJ IV (09:13)
== END 2021-03-02 10:20 | disposition home or self-care (01) ==
PROVIDERS: PCP Registered Nurse; Referring Provider Internal Medicine Gastroenterology; Visit Provider Internal Medicine Gastroenterology
PROC: 0DJ08ZZ Inspection of Upper Intestinal Tract, Via Natural or Artificial Opening Endoscopic (ICD-10-PCS; CPT 43235; principal; 2021-03-02 09:30)
DX: D50.9 Iron deficiency anemia, unspecified (principal); K21.00 Gastro-esophageal reflux disease with esophagitis, without bleeding; K31.7 Polyp of stomach and duodenum; Z86.16 Personal history of COVID-19; E11.9 Type 2 diabetes mellitus without complications; Z79.84 Long term (current) use of oral hypoglycemic drugs; K29.50 Unspecified chronic gastritis without bleeding
CPT/HCPCS: 43239; J2250; J3010

== ENCOUNTER 2021-04-14 13:28 | Emergency (ER) | payer BC, SELFPAY ==
[2021-04-14 13:46] VITALS: BP 174/79; PULSE 85; RESP 16; TEMP 36.6; O2SAT 96; BMI 35.9
--- NOTE | 2021-04-14 13:50 | DI.RAD.S_ITS ---
PROCEDURE: XR CHEST 1V INDICATIONS: chest pain TECHNIQUE: One view of the chest was acquired. COMPARISON: [facility], CT, CT ABDOMEN PELVIS W CON, 02/04/2019, 7:59. FINDINGS: Surgical changes and devices: None. Lungs and pleura: Lungs are clear. No pleural effusions or pneumothorax. Mediastinum: Mediastinal contours appear normal. Heart size is normal. Bones and chest wall: No suspicious bony lesions. Overlying soft tissues appear unremarkable. IMPRESSION: No acute cardiopulmonary abnormality. Dictated by: Gordon Flores M.D. on 04/14/2021 at 14:14 Approved by: Gordon Flores M.D. on 04/14/2021 at 14:15
[2021-04-14 14:01] LABS: Add Manual Diff / Slide Review NO; Basophils Absolute Auto 0 /uL (0-100); Basophils Percent Auto 0.4 % (0-2); Eosinophils Absolute Auto 100 /uL (0-450); Eosinophils Percent Auto 1.1 % (2-4); Hematocrit 40.1 % (36-46); Hemoglobin 13.3 g/dL (12.0-16.0); Lymphocytes Absolute Auto 1500 /uL (1100-4500); Lymphocytes Percent Auto 26.9 % (25-40); Mean Corpuscular HGB Conc 33.1 % (30-36); Mean Corpuscular Hemoglobin 26.2 PG (26-34); Mean Corpuscular Volume 79.2 fL (80-100); Monocytes Absolute Auto 600 /uL (0-900); Monocytes Percent Auto 9.8 % (3-14); Neutrophils Absolute Auto 3600 /uL (1500-7000); Neutrophils Percent Auto 61.8 % (50-75); Platelet Count 256 X10^3/uL (150-400); Red Blood Cell Count 5.06 X10^6/uL (4.0-5.2); Red Cell Distribution Width 23.2 % (11.6-14.8); White Blood Cell Count 5.8 X10^3/uL (4.5-11.0)
[2021-04-14 14:11] VITALS: BP 124/69; PULSE 76; RESP 16; O2SAT 97
[2021-04-14 14:17] LABS: Alanine Aminotransferase 28 IU/L (<35); Albumin 4.8 g/dL (3.5-5.0); Albumin Globulin Ratio 1.7 (1.0-2.8); Alkaline Phosphatase 85 U/L (38-126); Aspartate Aminotransferase 29 IU/L (14-36); Bilirubin Total 0.3 mg/dL (0.2-1.3); Blood Urea Nitrogen 11 mg/dL (7-17); Calcium 9.7 mg/dL (8.4-10.2); Carbon Dioxide 25 mmol/L (22-32); Chloride 106 mmol/L (98-107); Creatine Kinase 51 U/L (30-135); Estimated Glomerular Filt Rate > 60.0 mL/min (>60); Globulin 2.9 g/dL (1.7-4.1); Glucose 111 mg/dL (70-100); HEMOLYSIS < 15 (0-50); Lipase 103 U/L (23-300); Potassium 4.1 mmol/L (3.4-5.1); Sodium 140 mmol/L (137-145); Total Protein 7.7 g/dL (6.3-8.2)
--- NOTE | 2021-04-14 14:22 | ED.CHESTPAIN ---
HPI - Chest Pain <Spike Low PA-C - Last Filed: 04/14/21 19:04> General Chief Complaint: Chest Pain Stated Complaint: chest heaviness/jaw pain/lt arm pain Time Seen by Provider: 04/14/21 14:19 Source: patient Mode of arrival: Ambulatory Limitations: no limitations History of Present Illness HPI narrative: Carolann presents today with chief complaint of left-sided chest heaviness, left upper jaw this, left arm discomfort that started last night. She reports that her symptoms have waxed and waned today. Nothing seems to make her symptoms worse including exertion. Her symptoms seem to come and go randomly and are described as very faint/mild. She denies any significant headache, dizziness, vision changes, presyncope, syncope, nausea, vomiting, shortness of breath, cough, sore throat, fever or any other acute concerns or complaints at this time. Related Data Home Medications Medication Instructions Recorded Confirmed CA PANTOTHENATE/FOLIC ACID/VIT 1 tab PO Q DAY #0 05/31/11 03/02/21 (MULTIVITAMIN) glipizide 5 mg tablet 2.5 mg PO DAILY tab 08/16/20 03/02/21 ferrous sulfate 325 mg (65 mg 325 mg PO DAILY 02/02/21 03/02/21 iron) tablet (FeroSul) Previous Rx's Medication Instructions Recorded fluocinolone 0.025 % topical cream 1 applic TOP BID #15 gram 06/07/20 metformin 1,000 mg tablet 1,000 mg PO BID #180 tab 06/07/20 omeprazole 20 mg capsule,delayed 20 mg PO QDAY #90 cap 06/07/20 release BD Ultra Fine Pen Tips 31G x 8mm #2 ea 09/29/20 pen needle, diabetic 32 gauge x #100 ea 10/12/2012/05 (Droplet Pen Needle) atorvastatin 20 mg tablet (Lipitor) 20 mg PO HS #90 tab 12/15/20 dulaglutide 0.75 mg/0.5 mL 0.75 mg SUBCUT QWEEK #2 ml 01/31/21 subcutaneous pen injector (Trulicity) levothyroxine 100 mcg tablet 100 mcg PO QDAY #90 tab 02/16/21 Allergies Allergy/AdvReac Type Severity Reaction Status Date / Time No Known Drug Allergies Allergy Verified 12/21/20 08:18 Review of Systems <Spike Low PA-C - Last Filed: 04/14/21 19:04> Review of Systems Narrative: As per HPI Patient History <Spike Low PA-C - Last Filed: 04/14/21 19:04> Medical History Abdominal pain Depression (~1989) Diabetes mellitus (2002) GERD (gastroesophageal reflux disease) (~1994) Hyperlipidemia Hypertriglyceridemia Hypothyroidism (~1994) Postmenopausal state Rosacea Surgical History Status post endometrial ablation (~2010) Status post tonsillectomy and adenoidectomy (1983) Family History Father Age: 78 CAD (coronary artery disease) High cholesterol S/P CABG (coronary artery bypass graft) Grandfather CAD (coronary artery disease) CVA (cerebral vascular accident) Grandmother Age: 94 CAD (coronary artery disease) Hypertension Malignant neoplasm of uterus, unspecified site Grandfather Age: 76 CAD (coronary artery disease) Hypertension High cholesterol Grandmother Age: 100 Essential hypertension High cholesterol Social History household members: spouse Smoking Status: Never smoker alcohol intake: current substance use type: does not use Smoking Status: Never smoker alcohol intake frequency: holidays/special occasions only Substance Use Type: does not use Exam <Spike Low PA-C - Last Filed: 04/14/21 19:04> Narrative Exam Narrative: Exam Narrative: Const General: cooperative, healthy appearing, comfortable, no acute distress, well developed and well groomed Nutritional Appearance: Elevated BMI Orientation: alert and oriented x3 HENMT Head: normal to inspection and atraumatic Ears: hearing grossly normal bilaterally Nose: external nose normal and nares normal Face and sinus: normal facial exam Neck Neck: normal visual inspection and supple Resp Effort & Inspection: normal respiratory effort, able to speak in complete sentences, no audible wheezes, not labored, no nasal flaring and no respiratory distress, clear to auscultation bilaterally Cardiac Regular rate and rhythm, no discernible murmurs, rubs or gallops GI Normal bowel sounds, nontender to palpation, no masses noted Neuro General: alert, oriented x3, gait normal, tone normal and moves all extremities, cranial nerves 2-12 grossly intact, no sensory deficits noted. Cognition: normal cognition Speech: speech normal Gait: normal gait Psych Appearance: grossly normal and well kempt Mental Status: mental status grossly normal Speech and Movement: speech and movement normal Mood: congruent mood Affect: normal affect Initial Vital Signs Initial Vital Signs: Vital Signs Temperature 98 F 04/14/21 13:46 Pulse Rate 85 04/14/21 13:46 Respiratory Rate 16 04/14/21 13:46 Blood Pressure 174/79 H 04/14/21 13:46 Pulse Oximetry 96 04/14/21 13:46 <Josy Sullivan MD - Last Filed: 04/16/21 02:42> Initial Vital Signs Initial Vital Signs: Vital Signs Temperature 98 F 04/14/21 13:46 Pulse Rate 85 04/14/21 13:46 Respiratory Rate 16 04/14/21 13:46 Blood Pressure 174/79 H 04/14/21 13:46 Pulse Oximetry 96 04/14/21 13:46 Scores <Spike Low PA-C - Last Filed: 04/14/21 19:04> HEART Score Heart Score history: Slightly Suspicious Heart Score EKG: Normal Heart Score Age: 45-64 years old Heart Score risk factors: > 3 risk factors or hx of atherosclerotic disease Heart Score troponin: < or = to normal limit Heart Score Total: 3 Wells' Criteria for PE Clinical signs and symptoms of DVT: No PE is #1 Dx or equally likely: No Heart rate > 100: No Immobilization at least 3 days or surg in previous 4 weeks: No History of PE or DVT: No Hemoptysis: No Malignancy w/Treatment within 6 months or palliative: No Wells' PE Score total: 0 <Josy Sullivan MD - Last Filed: 04/16/21 02:42> HEART Score Heart Score Total: 3 Wells' Criteria for PE Wells' PE Score total: 0 Course <Spike Low PA-C - Last Filed: 04/14/21 19:04> Orders Ordered: ED Orders 04/14/21 13:50 XR chest 1V Stat EKG-12 Lead Stat 04/14/21 13:54 Complete Blood Count AUTO DIFF Stat Comprehensive Metabolic Panel Stat Lipase Stat Troponin & CK Cardiac Panel Stat 04/14/21 15:56 Trop I [Troponin I] Stat Vital Signs Vital signs: Vital Signs - 8 hr 04/14/21 13:46 04/14/21 14:11 04/14/21 14:30 Temperature 98 F Pulse Rate 85 76 73 Respiratory Rate 16 16 14 Blood Pressure 174/79 H 124/69 154/74 H Pulse Oximetry 96 97 97 04/14/21 15:00 04/14/21 16:34 Temperature Pulse Rate 70 85 Respiratory Rate 18 14 Blood Pressure 145/70 H 123/77 Pulse Oximetry 99 100 <Josy Sullivan MD - Last Filed: 04/16/21 02:42> Orders Ordered: ED Orders 04/14/21 13:50 XR chest 1V Stat EKG-12 Lead Stat 04/14/21 13:54 Complete Blood Count AUTO DIFF Stat Comprehensive Metabolic Panel Stat Lipase Stat Troponin & CK Cardiac Panel Stat 04/14/21 15:56 Trop I [Troponin I] Stat Vital Signs Vital signs: Vital Signs - 8 hr 04/14/21 13:46 04/14/21 14:11 04/14/21 14:30 Temperature 98 F Pulse Rate 85 76 73 Respiratory Rate 16 16 14 Blood Pressure 174/79 H 124/69 154/74 H Pulse Oximetry 96 97 97 04/14/21 15:00 04/14/21 16:34 Temperature Pulse Rate 70 85 Respiratory Rate 18 14 Blood Pressure 145/70 H 123/77 Pulse Oximetry 99 100 MDM - Chest Pain <Spike Low PA-C - Last Filed: 04/14/21 19:04> Lab Data Result diagrams: 04/14/21 13:54 04/14/21 13:54 Labs: Lab Results 04/14/21 04/14/21 04/14/21 Range/Units 13:54 13:54 15:56 WBC 5.8 (4.5-11.0) X10^3/uL RBC 5.06 (4.0-5.2) X10^6/uL Hgb 13.3 (12.0-16.0) g/dL Hct 40.1 (36-46) % MCV 79.2 L (80-100) fL MCH 26.2 (26-34) PG MCHC 33.1 (30-36) % RDW 23.2 H (11.6-14.8) % Plt Count 256 (150-400) X10^3/uL Neut % (Auto) 61.8 (50-75) % Lymph % (Auto) 26.9 (25-40) % [place] % (Auto) 9.8 (3-14) % Eos % (Auto) 1.1 L (2-4) % Baso % (Auto) 0.4 (0-2) % Neut # (Auto) 3600 (5182-1847) /uL Lymph # (Auto) 1500 (1591-4666) /uL [place] # (Auto) 600 (0-900) /uL Eos # (Auto) 100 (0-450) /uL Baso # (Auto) 0 (0-100) /uL RBC Morphology Not Reportable Hypochromasia 1+ H Anisocytosis 1+ H Sodium 140 (137-145) mmol/L Potassium 4.1 (3.4-5.1) mmol/L Chloride 106 (98-107) mmol/L Carbon Dioxide 25 (22-32) mmol/L BUN 11 (7-17) mg/dL Creatinine 0.50 L (0.52-1.04) mg/dL Estimated GFR > 60.0 (>60) mL/min BUN/Creatinine Ratio 22.0 (6-22) Glucose 111 H (70-100) mg/dL Calcium 9.7 (8.4-10.2) mg/dL Total Bilirubin 0.3 (0.2-1.3) mg/dL AST 29 (14-36) IU/L ALT 28 (<35) IU/L Alkaline Phosphatase 85 (38-126) U/L Total Creatine Kinase 51 (30-135) U/L CK-MB (CK-2) TNP CK-MB (CK-2) Rel Index TNP Troponin I < 0.012 < 0.012 (0.01-0.034) ng/mL Total Protein 7.7 (6.3-8.2) g/dL Albumin 4.8 (3.5-5.0) g/dL Globulin 2.9 (1.7-4.1) g/dL Albumin/Globulin Ratio 1.7 (1.0-2.8) Lipase 103 (23-300) U/L MDM Narrative Medical decision making narrative: Patient has slightly concerning history for ACS. However, EKG and troponins times two do not suggest acute ischemia at this time. Symptoms are also quite mild. PE was considered but seems to be unlikely at this time. Heart score is 3. I think that she would be appropriate for outpatient management at this time. I discussed extensively strict ER return precautions and the need for to follow up as soon as possible with her PCP. She agreed to call their office tonight before they close to schedule an appointment. Patient verbalizes understanding and agrees to plan and has no further concerns at this time. Thank you A [id number] system was used with the dictation of this note. Please disregard any spelling or grammatical errors. <Josy Sullivan MD - Last Filed: 04/16/21 02:42> Lab Data Labs: Lab Results 04/14/21 04/14/21 04/14/21 Range/Units 13:54 13:54 15:56 WBC 5.8 (4.5-11.0) X10^3/uL RBC 5.06 (4.0-5.2) X10^6/uL Hgb 13.3 (12.0-16.0) g/dL Hct 40.1 (36-46) % MCV 79.2 L (80-100) fL MCH 26.2 (26-34) PG MCHC 33.1 (30-36) % RDW 23.2 H (11.6-14.8) % Plt Count 256 (150-400) X10^3/uL Neut % (Auto) 61.8 (50-75) % Lymph % (Auto) 26.9 (25-40) % [place] % (Auto) 9.8 (3-14) % Eos % (Auto) 1.1 L (2-4) % Baso % (Auto) 0.4 (0-2) % Neut # (Auto) 3600 (2802-0407) /uL Lymph # (Auto) 1500 (7298-4478) /uL [place] # (Auto) 600 (0-900) /uL Eos # (Auto) 100 (0-450) /uL Baso # (Auto) 0 (0-100) /uL RBC Morphology Not Reportable Hypochromasia 1+ H Anisocytosis 1+ H Sodium 140 (137-145) mmol/L Potassium 4.1 (3.4-5.1) mmol/L Chloride 106 (98-107) mmol/L Carbon Dioxide 25 (22-32) mmol/L BUN 11 (7-17) mg/dL Creatinine 0.50 L (0.52-1.04) mg/dL Estimated GFR > 60.0 (>60) mL/min BUN/Creatinine Ratio 22.0 (6-22) Glucose 111 H (70-100) mg/dL Calcium 9.7 (8.4-10.2) mg/dL Total Bilirubin 0.3 (0.2-1.3) mg/dL AST 29 (14-36) IU/L ALT 28 (<35) IU/L Alkaline Phosphatase 85 (38-126) U/L Total Creatine Kinase 51 (30-135) U/L CK-MB (CK-2) TNP CK-MB (CK-2) Rel Index TNP Troponin I < 0.012 < 0.012 (0.01-0.034) ng/mL Total Protein 7.7 (6.3-8.2) g/dL Albumin 4.8 (3.5-5.0) g/dL Globulin 2.9 (1.7-4.1) g/dL Albumin/Globulin Ratio 1.7 (1.0-2.8) Lipase 103 (23-300) U/L Discharge Plan Departure Patient Disposition: Home Clinical Impression: Chest pain Qualifiers: Chest pain type: unspecified Qualified Code(s): R07.9 - Chest pain, unspecified Instructions: DI for Acute Coronary Syndrome, DI for Chest Pain Activity Restrictions/Additional Instructions: It was very nice to meet you this afternoon. Your evaluation today has been reassuring. However, a diagnosis of chest pain should be taken very seriously. I would like you to call your primary care provider either this evening or 1st thing tomorrow and schedule a follow-up appointment as soon as possible. I think that a would be beneficial for you to do an outpatient cardiac workup including possible stress test and/or echocardiogram. Please discuss this with your PCP. If you experience any worsening chest pain, left arm pain, difficulty breathing, or have any other acute concerns or complaints please return immediately for re-evaluation. Thank you Spike Low PA-C Prescriptions: No Action CA PANTOTHENATE/FOLIC ACID/VIT (MULTIVITAMIN) 1 tab PO Q DAY Qty: 0 RF: 0 fluocinolone 0.025 % cream 1 applic TOP BID Qty: 15 RF: 1 metformin 1,000 mg tablet 1,000 mg PO BID Qty: 180 RF: 3 omeprazole 20 mg capsule,delayed release(DR/EC) 20 mg PO QDAY Qty: 90 RF: 1 (DME) BD Ultra Fine Pen Tips 31G x 8mm 100 package See Rx Instructions .ROUTE .MEDSUPPLY Qty: 2 RF: 6 (DME) Droplet Pen Needle 32 gauge x 5/16 needle See Rx Instructions .ROUTE .MEDSUPPLY Qty: 100 RF: 3 atorvastatin [Lipitor] 20 mg tablet 20 mg PO HS Qty: 90 RF: 1 ferrous sulfate [FeroSul] 325 mg (65 mg iron) tablet 325 mg PO DAILY RF: 0 levothyroxine 100 mcg tablet 100 mcg PO QDAY Qty: 90 RF: 1 Trulicity 0.75 mg/0.5 mL pen injector 0.75 mg SUBCUT QWEEK Qty: 2 RF: 2 glipizide 5 mg tablet 2.5 mg PO DAILY RF: 0 Referrals: Guru Santos ARNP [Primary Care Provider] - <Josy Sullivan MD - Last Filed: 04/16/21 02:42> Cosign ED Attending Cosignature Attestation: I was immediately available in the department for consultation throughout this patient's visit. I agree with documentation as above. Josy Sullivan MD
[2021-04-14 14:29] LABS: Troponin I < 0.012 ng/mL (0.01-0.034)
[2021-04-14 14:30] VITALS: BP 154/74; PULSE 73; RESP 14; O2SAT 97
[2021-04-14 14:43] LABS: Anisocytosis 1+; Hypochromasia 1+
[2021-04-14 15:00] VITALS: BP 145/70; PULSE 70; RESP 18; O2SAT 99
[2021-04-14 16:24] LABS: Troponin I < 0.012 ng/mL (0.01-0.034)
[2021-04-14 16:34] VITALS: BP 123/77; PULSE 85; RESP 14; O2SAT 100
== END 2021-04-14 16:56 | disposition home or self-care (01) ==
PROVIDERS: Emergency Medicine; Emergency Provider Physician Assistant; PCP Registered Nurse
DX: R07.9 Chest pain, unspecified (principal)
CPT/HCPCS: 36415; 71045; 80053; 82550; 83690; 84484; 85025; 93005; 93010; 99283; 99284

== ENCOUNTER → 2021-04-19 09:51 | Outpatient (CLI) | payer BC, SELFPAY ==
[2021-04-19 12:40] LABS: COVID19 -Nasal RAPID Negative (Negative)
== END ==
PROVIDERS: PCP Registered Nurse; Visit Provider Physician Assistant
DX: Z20.822 Contact with and (suspected) exposure to COVID-19 (principal)
CPT/HCPCS: 87635

== ENCOUNTER 2021-04-20 09:33 | Day surgery (SDC) | payer BC, SELFPAY ==
[2021-04-20] VITALS (9 sets, daily range): BP systolic 120–143; BP diastolic 50–72; PULSE 60–75; RESP 12–17; TEMP 36.2–36.8; O2SAT 66–100; BMI 36.0
--- NOTE | 2021-04-20 10:27 | PM.HP.1 ---
History of Present Illness History of Present Illness Date Patient Seen: 04/20/21 Chief complaint: SDC Narrative: Anemia with negative EGD rule out colonic findings to explain the anemia. Patient History Medical History Abdominal pain Depression (~1989) Diabetes mellitus (2002) GERD (gastroesophageal reflux disease) (~1994) Hyperlipidemia Hypertriglyceridemia Hypothyroidism (~1994) Postmenopausal state Rosacea Surgical History Status post endometrial ablation (~2010) Status post tonsillectomy and adenoidectomy (1983) Family & Social History Family History Father Age: 78 CAD (coronary artery disease) High cholesterol S/P CABG (coronary artery bypass graft) Grandfather CAD (coronary artery disease) CVA (cerebral vascular accident) Grandmother Age: 94 CAD (coronary artery disease) Hypertension Malignant neoplasm of uterus, unspecified site Grandfather Age: 76 CAD (coronary artery disease) Hypertension High cholesterol Grandmother Age: 100 Essential hypertension High cholesterol Social History: household members spouse Tobacco & Substance use: Smoking Status Never smoker alcohol intake former alcohol intake frequency holiday/special occasion Substance Use Type does not use Meds Home Medications and Allergies Home Medications Medication Instructions Recorded Confirmed Type fluocinolone 0.025 % topical cream 1 applic TOP BID #15 gram 06/07/20 04/20/21 Rx metformin 1,000 mg tablet 1,000 mg PO BID #180 tab 06/07/20 04/20/21 Rx omeprazole 20 mg capsule,delayed 20 mg PO QDAY #90 cap 06/07/20 03/02/21 Rx release glipizide 5 mg tablet 2.5 mg PO DAILY tab 08/16/20 04/20/21 History BD Ultra Fine Pen Tips 31G x 8mm #2 ea 09/29/20 02/14/21 Rx pen needle, diabetic 32 gauge x #100 ea 10/12/20 02/14/21 Rx /16 (Droplet Pen Needle) atorvastatin 20 mg tablet (Lipitor) 20 mg PO HS #90 tab 12/15/20 04/20/21 Rx dulaglutide 0.75 mg/0.5 mL 0.75 mg SUBCUT QWEEK #2 ml 01/31/21 04/20/21 Rx subcutaneous pen injector (Trulicity) ferrous sulfate 325 mg (65 mg 325 mg PO DAILY 02/02/21 04/20/21 History iron) tablet (FeroSul) levothyroxine 100 mcg tablet 100 mcg PO QDAY #90 tab 02/16/21 04/20/21 Rx Allergies Allergy/AdvReac Type Severity Reaction Status Date / Time No Known Drug Allergies Allergy Verified 04/20/21 09:40 Exam Vital Signs (past 8 hours): - 04/20/21 09:43 Temperature 97.2 F L Pulse Rate 75 Respiratory Rate 16 Blood Pressure 135/72 Pulse Oximetry 98 Oxygen Delivery Method Room Air Narrative Exam Narrative: Oropharynx free of lesions Chest clear to auscultation percussion Cardiac exam reveals no S3 or murmur Assessment & Plan Assessment & Plan narrative: Anemia with negative EGD rule out colonic lesion. Risks, benefits, alternatives have been explained. Time Spent With Patient Critical Care time: I spent a total of [] minutes of critical care time on this patient's care today; this time is exclusive of procedural time.
--- NOTE | 2021-04-20 10:29 | PM.OP.COLON ---
Operative Date/Time/Diagnoses Date of procedure: 04/20/21 Pre-op diagnosis: See indication and findings Procedure & Clinicians Study performed: Colonoscopy Indications: Anemia with negative EGD. Surgeon: Yulissa Eisenberg Procedure Notes Procedure in detail: After informed consent was obtained the patient was placed in left lateral decubitus position. The video colonoscope was introduced the rectum slowly advanced cecum. On slow withdrawal mucosa was carefully examined. Preparation was good. The scope was removed. The patient tolerated procedure well. Complications none blood loss none Sedation mac Findings 1. Normal colonoscopy to cecum Carolann should have follow-up colonoscopy in 10 years. As concerns for anemia, to complete her workup, she should have a pill camera performed. This will be arranged.
== END 2021-04-20 12:10 | disposition home or self-care (01) ==
PROVIDERS: PCP Student in an Organized Health Care Education/Training Program; Referring Provider Internal Medicine Gastroenterology; Visit Provider Internal Medicine Gastroenterology
PROC: 0DJD8ZZ Inspection of Lower Intestinal Tract, Via Natural or Artificial Opening Endoscopic (ICD-10-PCS; CPT 45378; principal; 2021-04-20 10:30)
DX: D64.9 Anemia, unspecified (principal); Z86.16 Personal history of COVID-19; K21.9 Gastro-esophageal reflux disease without esophagitis; E11.9 Type 2 diabetes mellitus without complications; K59.00 Constipation, unspecified; Z79.84 Long term (current) use of oral hypoglycemic drugs
CPT/HCPCS: 45378; J2704

== ENCOUNTER → 2021-04-26 07:01 | Outpatient (CLI) | payer BC, SELFPAY ==
[2021-04-26 08:06] LABS: HEMOLYSIS < 15 (0-50); Iron 62 ug/dL (37-170)
[2021-04-26 08:17] LABS: Percent Iron Saturation 19 % (15-50); Total Iron Binding Capacity 319 ug/dL (265-497); Transferrin 260 mg/dL (206-381)
[2021-04-26 08:41] LABS: Ferritin 12 ng/mL (11-264)
== END ==
PROVIDERS: PCP Student in an Organized Health Care Education/Training Program; Referring Provider Obstetrics & Gynecology; Visit Provider Obstetrics & Gynecology
DX: E61.1 Iron deficiency (principal)
CPT/HCPCS: 36415; 82728; 83036; 83540; 83550

== ENCOUNTER → 2021-04-26 08:43 | Outpatient (CLI) | payer BC, SELFPAY ==
--- NOTE | 2021-04-26 09:51 | PM.TREADMILL ---
Cardiac Stress Test Report Referral & Results Date Patient Seen: 04/26/21 Time Patient Seen: 09:30 Requesting provider: Bridger Obrien Indication: Chest pain Rest ECG: NSR Procedure Note: Today following both written and verbal informed consent, the patient was exercised according to a standard Tigre protocol. The patient exercised for a total of 7 minutes 19 seconds achieving a maximum heart rate of 169. Patient's maximum systolic blood pressure was 2 10 This was an estimated 10.1 METs. Exaggerated hemodynamic response to exercise. Average exercise capacity (FA I +5% on active scale). Rare PVCs. [address] deviations in inferior leads that resolved rapidly with rest. Presenting symptoms not reproduced at peak exercise, but did have new retrosternal chest pain 1-2/10 that resolved quickly with rest. Impression: Intermediate probability for ischemia. Follow-up Cardiolite may be appropriate if clinically indicated. Will discuss at our next visit. Ortega treadmill score of -2 is correlated with 90% 5 year survival rate from cardiac causes of mortality. Please note: Actual ECG tracings can be found in the PACS system.
--- NOTE | 2021-04-27 05:47 | DI.NM.S_ITS ---
DATE OF SERVICE: PROCEDURE: Exercise stress test. DATE OF STUDY: 04/26/2021. INDICATIONS: Fatigue with underlying diabetes mellitus, hyperlipidemia. EXERCISE TREADMILL TESTING: Under the patient underwent exercise stress test under the supervision of an attending staff. She walked on Tigre protocol for 7 minutes and 19 seconds, achieved 101 percent of target heart rate. Maximum heart rate achieved 169 beats per minute. Resting blood pressure 132/80. Peak blood pressure 230/100 suggestive of hypertensive response. Achieved 10.1 METS of workload and JAKE positive 5%. Baseline rhythm was sinus with some repolarization changes. At peak exercise, there were artifacts however in immediate recovery when the heart rate is still 166, no obvious ischemic changes seen. No significant arrhythmias seen. The patient has mild retrosternal chest discomfort at peak exercise, which resolved quickly with rest. On a scale of 1- 10, it was 1-2 in intensity. CONCLUSION: Exercise test did not show any convincing ischemic changes. The patient walked on Tigre protocol for 7 minutes and 19 seconds. Achieved 101% of target heart rate. JAKE positive 5%. Hypertensive blood pressure response. Peak blood pressure 230/100. Mild chest discomfort at peak exercise which resolved quickly with rest. ChristianCarolann root - ZEFERINO/hermelinda/yuri doc#: [id number]/job#: [id number] dd: 04/26/2021 17:41:00 dt: 04/27/2021 04:44:00 DICTATING /COPIES TO: Ros Polanco MD COPIES MNE: YIMI;
== END ==
PROVIDERS: PCP Student in an Organized Health Care Education/Training Program; Referring Provider Student in an Organized Health Care Education/Training Program; Visit Provider Student in an Organized Health Care Education/Training Program
DX: R07.9 Chest pain, unspecified (principal); E61.1 Iron deficiency; R53.83 Other fatigue; E11.9 Type 2 diabetes mellitus without complications; E78.5 Hyperlipidemia, unspecified
CPT/HCPCS: 36415; 82728; 83036; 83540; 83550; 93016; 93017; 93018

== ENCOUNTER → 2021-05-02 08:01 | Outpatient (CLI) | payer BC, SELFPAY ==
--- NOTE | 2021-05-02 08:03 | DI.ECHO.S_ITS ---
[facility]---------+ [facility] +---------+ : : [address] : : : : [place], [place] : : : : [id number] : : : : Phone: [phone]+ Echocardiogram Report + + :Name: JENNIFER CADE Study Date: 05/02/2021 Height: 67 in : :[facility] ReadingLocation: Weight: 230 lb : : Gender: Female BSA: 2.1 m2 : :: 1965 Age: 55 yrs BP: 143/85 mmHg: :Reason For Study: Chest pain : : Performed By: BRAYDON TAPIA : :Referring: JOSE J BIRD : + + Interpretation Summary 1) Normal left ventricular thickness, size, wall motion, and systolic function (EF 55-60%). 2) Upper normal right ventricular size with normal function. 3) No significant valvular abnormalities. 4) The right ventricular systolic pressure is estimated to be at least 22 mmHg based on an estimated right atrial pressure of 3 mm Hg. 5) No prior Echo available for comparison. Procedure: A two-dimensional transthoracic echocardiogram with color flow and Doppler was performed. The study quality was technically adequate. There is no prior echocardiogram noted for this patient. The patient was in normal sinus rhythm during the exam. Left Ventricle: The left ventricle is normal in size and wall thickness. There is mild proximal septal thickening noted. The ejection fraction is estimated to be 55-60%. Left ventricular systolic function appears normal without focal wall motion abnormalities. Right Ventricle: The right ventricle is at the upper limits of normal in size. The right ventricular systolic function is normal. Atria: The left atrial size is normal. The right atrium is mildly dilated. There is no Doppler evidence for an interatrial shunt. The atrial septum is aneurysmal. The thickening of interatrial septum suggests lipomatous hypertrophy. Mitral Valve: The mitral valve is normal. There is trace mitral regurgitation. Aortic Valve: The aortic valve is trileaflet. The aortic valve opens well. There is no aortic valve stenosis. There is trace aortic regurgitation. Tricuspid Valve: The tricuspid valve is normal. There is trace tricuspid regurgitation. The right ventricular systolic pressure is estimated to be at least 22 mmHg based on an estimated right atrial pressure of 3 mm Hg. Pulmonic Valve: The pulmonic valve leaflets are thin and pliable; valve motion is normal. There is a trace or physiologic amount of pulmonic regurgitation. Great Vessels: The aortic root is normal size. The ascending aorta is normal in size. The aortic arch is normal in size. The IVC is of normal diameter and collapses greater than 50% with a sniff. This suggests a low right atrial pressure of 3 mm Hg. Pericardium/ Pleura There is no pericardial effusion. There is an anterior echo-free space consistent with a fat pad. There is no pleural effusion. MMode/2D Measurements & Calculations LVIDd: 4.3 cm LVOT diam: 2.2 cm LVIDs: 2.9 cm Ao root diam: 3.0 cm FS: 32.2 % asc Aorta Diam: 2.8 cm IVSd: 0.94 cm Ao Arch Diam (Prox Trans): 2.7 cm LVPWd: 1.0 cm LV almaraz. diameter/BSA (cm/m^2): 2.0 LV sys. diameter/BSA (cm/m^2): 1.4 LA A2 area: 20.5 cm2 RA long axis: 4.4 cm LA A4 area: 19.5 cm2 RA area: 15.5 cm2 LA length (vol): 5.1 cm RA vol: 46.6 ml LA vol: 65.7 ml RA : 21.7 ml/m2 LA vol index: 30.6 ml/m2 RVD1 (basal): 4.2 cm TAPSE: 2.5 cm Doppler Measurements & Calculations Ao V2 max: 105.9 cm/sec LVOT Max Iam: 90.6 cm/sec Ao V2 mean: 82.5 cm/sec LV V1 max P.3 mmHg Ao max P.5 mmHg LV V1 VTI: 20.8 cm Ao mean P.9 mmHg TIFFANY(I,D): 3.3 cm2 Ao V2 VTI: 23.3 cm TIFFANY(V,D): 3.1 cm2 sev ratio: 0.89 TIFFANY indexed to BSA (cm^2/m^2): 1.5 MV E max iam: 70.4 cm/sec TR max iam: 215.2 cm/sec MV A max iam: 80.0 cm/sec TR max P.5 mmHg MV E/A: 0.88 PA V2 max: 80.0 cm/sec Med Peak E' Iam: 6.1 cm/sec PA V2 mean: 64.1 cm/sec E/E' med: 11.5 PA mean P.7 mmHg Lat Peak E' Iam: 8.0 cm/sec PA pr(Accel): 0.22 mmHg E/E' lat: 8.8 E/e' average: 10.2 MV dec time: 0.20 sec SV(OT): 76.0 ml Reading Physician:12:55 PM
== END ==
PROVIDERS: PCP Student in an Organized Health Care Education/Training Program; Referring Provider Student in an Organized Health Care Education/Training Program; Visit Provider Student in an Organized Health Care Education/Training Program
DX: R07.9 Chest pain, unspecified (principal)
CPT/HCPCS: 93306

== ENCOUNTER → 2021-08-15 08:23 | Outpatient (CLI) | payer BC, SELFPAY ==
--- NOTE | 2021-08-15 | DI.MG.S_ITS ---
BILATERAL DIGITAL SCREENING MAMMOGRAM 3D/2D WITH CAD: 08/15/2021 CLINICAL: Routine screening. Comparison is made to exams dated: 08/09/2020 mammogram, 07/28/2019 mammogram, and 05/17/2018 mammogram - [facility]. The tissue of both breasts is predominantly fatty. Current study was also evaluated with a Computer Aided Detection (CAD) system. No significant masses, calcifications, or other findings are seen in either breast. There has been no significant interval change. IMPRESSION: NEGATIVE There is no mammographic evidence of malignancy. A 1 year screening mammogram is recommended. This exam was interpreted at Station ID: [id number]. NOTE: For mammograms, a report in lay terms will be sent to the patient. Approximately 15% of breast malignancies will not be visualized mammographically. In the management of a palpable breast mass, a negative mammogram must not discourage biopsy of a clinically suspicious lesion. Electronically Signed By: Jason nicole/shawn:08/15/2021 09:51:20 letter sent: Normal Exam ACR BI-RADS Category 1: Negative [id number]
== END ==
PROVIDERS: PCP Student in an Organized Health Care Education/Training Program; Referring Provider Student in an Organized Health Care Education/Training Program; Visit Provider Student in an Organized Health Care Education/Training Program
DX: Z12.31 Encounter for screening mammogram for malignant neoplasm of breast (principal)
CPT/HCPCS: 77063; 77067

== ENCOUNTER → 2021-09-05 07:25 | Outpatient (CLI) | payer BC, SELFPAY ==
[2021-09-05 08:18] LABS: Hematocrit 37.5 % (36-46); Hemoglobin 12.9 g/dL (12.0-16.0); Mean Corpuscular HGB Conc 34.4 % (30-36); Mean Corpuscular Hemoglobin 30.6 PG (26-34); Mean Corpuscular Volume 88.9 fL (80-100); Platelet Count 235 X10^3/uL (150-400); Red Blood Cell Count 4.22 X10^6/uL (4.0-5.2); Red Cell Distribution Width 13.9 % (11.6-14.8); White Blood Cell Count 4.6 X10^3/uL (4.5-11.0)
[2021-09-05 08:34] LABS: Hemoglobin A1C% w Est Avg Glu 7.4 % (4.0-6.0)
[2021-09-05 08:38] LABS: BUN Creatinine Ratio 19.6 (6-22); Blood Urea Nitrogen 11 mg/dL (7-17); Calcium 9.6 mg/dL (8.4-10.2); Carbon Dioxide 29 mmol/L (22-32); Chloride 103 mmol/L (98-107); Cholesterol 156 mg/dL (140-199); Estimated Glomerular Filt Rate > 60.0 mL/min (>60); Glucose 172 mg/dL (70-100); HDL Cholesterol 41 mg/dL (40-60); HEMOLYSIS < 15 (0-50); LDL Cholesterol Calculated 81 mg/dL (<100); Potassium 4.4 mmol/L (3.4-5.1); Sodium 138 mmol/L (137-145); Triglycerides 169 mg/dL (35-150)
[2021-09-05 09:00] LABS: Creatinine Urine Random 141.7 mg/dL
[2021-09-05 09:04] LABS: Microalbumi Creatinin Ratio Ur 4.9 ug/mg CR (<30); Microalbumin Urine Random 0.7 mg/dL (0-1.6)
== END ==
PROVIDERS: PCP Student in an Organized Health Care Education/Training Program; Referring Provider Student in an Organized Health Care Education/Training Program; Visit Provider Student in an Organized Health Care Education/Training Program
DX: E11.69 Type 2 diabetes mellitus with other specified complication (principal); E78.5 Hyperlipidemia, unspecified; D50.9 Iron deficiency anemia, unspecified; E11.9 Type 2 diabetes mellitus without complications
CPT/HCPCS: 36415; 80048; 80061; 82043; 82570; 83036; 85027

== ENCOUNTER → 2021-11-21 07:59 | Outpatient (CLI) | payer BC, SELFPAY ==
[2021-11-21 10:01] LABS: Hemoglobin A1C% w Est Avg Glu 6.7 % (4.0-6.0)
== END ==
PROVIDERS: PCP Student in an Organized Health Care Education/Training Program; Referring Provider Student in an Organized Health Care Education/Training Program; Visit Provider Student in an Organized Health Care Education/Training Program
DX: E11.9 Type 2 diabetes mellitus without complications (principal)
CPT/HCPCS: 36415; 83036

== ENCOUNTER → 2021-11-21 13:00 | Outpatient (CLI) | payer BC, SELFPAY ==
--- NOTE | 2021-11-21 | DI.RAD.S_ITS ---
PROCEDURE: XR ABDOMEN MIN 2V INDICATIONS: Foreign body in small intestine, initial encounter TECHNIQUE: 2 views of the abdomen were acquired. COMPARISON: None. FINDINGS: Surgical changes and devices: No radiopaque foreign body consistent with a retained pill camera is identified. Bowel: No pneumoperitoneum. The bowel gas pattern is normal. Soft tissues: No masses; visualized solid organ contours appear normal in size. No suspicious abdominal calcifications. Bones: No suspicious bony abnormalities. There is leftward curvature the thoracolumbar. IMPRESSION: No radiopaque foreign body consistent with a pill camera identified Dictated by: Latrell Sahni M.D. on 11/21/2021 at 15:36 Approved by: Latrell Sahni M.D. on 11/21/2021 at 15:38
== END ==
PROVIDERS: PCP Student in an Organized Health Care Education/Training Program; Referring Provider Internal Medicine Gastroenterology; Visit Provider Internal Medicine Gastroenterology
DX: T18.3XXA Foreign body in small intestine, initial encounter (principal); E11.9 Type 2 diabetes mellitus without complications
CPT/HCPCS: 36415; 74019; 83036

== ENCOUNTER 2022-03-08 18:39 | Observation (INO) | payer BC, SELFPAY ==
[2022-03-08] VITALS (13 sets, daily range): BP systolic 110–181; BP diastolic 61–86; PULSE 66–88; RESP 12–19; TEMP 36.6; O2SAT 92–98; BMI 37.5
--- NOTE | 2022-03-08 18:48 | DI.RAD.S_ITS ---
PROCEDURE: XR CHEST 1V INDICATIONS: chest pain TECHNIQUE: One view of the chest was acquired. COMPARISON: [facility], CR, XR CHEST 1V, 04/14/2021, 13:52. FINDINGS: Surgical changes and devices: None. Lungs and pleura: Low lung volumes. Lungs are clear. No pleural effusions or pneumothorax. Mediastinum: Mediastinal contours appear normal. Heart size is normal. Bones and chest wall: No suspicious bony lesions. Overlying soft tissues appear unremarkable. IMPRESSION: Given low lung volumes, no acute cardiopulmonary disease. Dictated by: Grace Delgado M.D. on 03/08/2022 at 20:04 Approved by: Grace Delgado M.D. on 03/08/2022 at 20:06
[2022-03-08] MEDS: ASPIRIN 81 MG CHEW TAB 324 MG PO (18:54)
[2022-03-08 19:16] LABS: Alanine Aminotransferase 40 IU/L (<35); Albumin 4.6 g/dL (3.5-5.0); Albumin Globulin Ratio 1.6 (1.0-2.8); Alkaline Phosphatase 98 U/L (38-126); Aspartate Aminotransferase 30 IU/L (14-36); BUN Creatinine Ratio 22.2 (6-22); Bilirubin Total 0.4 mg/dL (0.2-1.3); Blood Urea Nitrogen 16 mg/dL (7-17); Calcium 9.2 mg/dL (8.4-10.2); Carbon Dioxide 28 mmol/L (22-32); Chloride 100 mmol/L (98-107); Creatine Kinase 63 U/L (30-135); Estimated Glomerular Filt Rate > 60 mL/min (>60); Globulin 2.9 g/dL (1.7-4.1); Glucose 248 mg/dL (70-100); HEMOLYSIS < 15 (0-50); Lipase 91 U/L (23-300); Magnesium 1.7 mg/dL (1.6-2.3); Potassium 3.7 mmol/L (3.4-5.1); Sodium 136 mmol/L (137-145); Total Protein 7.5 g/dL (6.3-8.2)
[2022-03-08 19:22] LABS: Add Manual Diff / Slide Review NO; Basophils Absolute Auto 0 /uL (0-100); Basophils Percent Auto 0.6 % (0-2); Eosinophils Absolute Auto 200 /uL (0-450); Eosinophils Percent Auto 3.9 % (2-4); Hematocrit 38.2 % (36-46); Hemoglobin 13.3 g/dL (12.0-16.0); Lymphocytes Absolute Auto 1700 /uL (1100-4500); Lymphocytes Percent Auto 32.1 % (25-40); Mean Corpuscular HGB Conc 34.8 % (30-36); Mean Corpuscular Hemoglobin 29.9 PG (26-34); Mean Corpuscular Volume 85.8 fL (80-100); Monocytes Absolute Auto 400 /uL (0-900); Neutrophils Absolute Auto 3000 /uL (1500-7000); Neutrophils Percent Auto 55.4 % (50-75); Platelet Count 215 X10^3/uL (150-400); Red Blood Cell Count 4.46 X10^6/uL (4.0-5.2); Red Cell Distribution Width 14.1 % (11.6-14.8); White Blood Cell Count 5.4 X10^3/uL (4.5-11.0)
[2022-03-08 19:28] LABS: Troponin I < 0.012 ng/mL (0.01-0.034)
[2022-03-08 22:49] LABS: Troponin I < 0.012 ng/mL (0.01-0.034)
--- NOTE | 2022-03-08 23:05 | ED_ITS ---
HPI - Chest Pain General Chief Complaint: Chest Pain Stated Complaint: Chest pains Time Seen by Provider: 03/08/22 22:28 Source: patient Mode of arrival: Ambulatory Limitations: no limitations History of Present Illness HPI narrative: Patient here for non reproducible substernal chest pressure. Blood pressure noted. Patient has history of diabetes as well. Patient states started 2 days ago. Nonreproducible. Nonradiating. No nausea or shortness breath or diaphoresis. Patient did have a stress test April 2021. Please see report below. Patient followed by Dr. Bridger Petersen. There is family history of coronary disease with primary family. Father with bypass surgery at age 48 No recent illness fever chills cough cold congestion nausea vomiting or diarrhea Related Data Home Medications Medication Instructions Recorded Confirmed ferrous sulfate 325 mg (65 mg 325 mg PO DAILY 02/02/21 05/02/21 iron) tablet (FeroSul) aspirin 81 mg tablet,delayed 81 mg PO DAILY 05/02/21 03/09/22 release (Adult Low Dose Aspirin) famotidine 20 mg tablet 20 mg PO BEDTIME 05/02/21 03/09/22 Previous Rx's Medication Instructions Recorded fluocinolone 0.025 % topical cream 1 applic topical BID #15 grams 06/07/20 omeprazole 20 mg capsule,delayed 20 mg PO QDAY #90 caps 06/07/20 release glipizide 10 mg tablet, extended 10 mg PO DAILY #90 tabs 09/07/21 release 24 hr levothyroxine 100 mcg tablet 100 mcg PO DAILY #90 tabs 11/25/21 metformin 1,000 mg tablet 1,000 mg PO BID #180 tabs 11/25/21 atorvastatin 20 mg tablet (Lipitor) 20 mg PO HS #90 tabs 12/26/21 Allergies Allergy/AdvReac Type Severity Reaction Status Date / Time No Known Drug Allergies Allergy Verified 03/08/22 18:48 Review of Systems Review of Systems Narrative: GENERAL: Denies chills, fatigue, malaise, fever, sweats. HEENT: Denies sinus pain, ear pain, sore throat RESPIRATORY: Denies dyspnea, cough CARDIOVASCULAR: chest pain, palpitations GASTROINTESTINAL: Denies nausea, vomiting, abdominal pain : Denies dysuria, frequency, hematuria MUSCULOSKELETAL: denies muscle or bony pain SKIN: Denies rash, skin lesions NEUROLOGIC: Denies weakness, numbness ROS Unobtainable: All systems reviewed & are unremarkable except as noted in HPI and below Patient History Medical History Depression (~1989) Essential hypertension GERD (gastroesophageal reflux disease) (~1994) Hyperlipidemia associated with type 2 diabetes mellitus Hypothyroidism (~1994) IBS (irritable bowel syndrome) Rosacea Type 2 diabetes mellitus Surgical History Status post endometrial ablation (~2010) Status post tonsillectomy and adenoidectomy (1983) Family History Father Age: 79 CAD (coronary artery disease) High cholesterol S/P CABG (coronary artery bypass graft) Grandfather CAD (coronary artery disease) CVA (cerebral vascular accident) Grandmother Age: 95 CAD (coronary artery disease) Hypertension Malignant neoplasm of uterus, unspecified site Grandfather Age: 77 CAD (coronary artery disease) Hypertension High cholesterol Grandmother Age: 101 Essential hypertension High cholesterol Social History household members: spouse Smoking Status: Never smoker alcohol intake: former substance use type: does not use Smoking Status: Never smoker alcohol intake frequency: holidays/special occasions only Substance Use Type: does not use Exam Narrative Exam Narrative: GENERAL: in no distress, not toxic not dyspneic HEAD: Normocephalic. EYES: Pupils equal round No scleral icterus. ENT: Mucous membranes moist. NECK: Trachea midline. CARDIOVASCULAR: Regular rate and rhythm without murmurs RESPIRATORY: Clear to auscultation. Breath sounds equal bilaterally. No wheezes, rales, or rhonchi. GASTROINTESTINAL: Abdomen soft, non-tender EXTREMITIES: No gross deformities. BACK: No flank tenderness. NEURO: AOx4. SKIN: Warm and dry PSYCH: Not anxious, is cooperative Initial Vital Signs Initial Vital Signs: Vital Signs Temperature 97.9 F 03/08/22 18:45 Pulse Rate 88 03/08/22 18:45 Respiratory Rate 18 03/08/22 18:45 Blood Pressure 181/86 H 03/08/22 18:45 Pulse Oximetry 98 03/08/22 18:45 Oxygen Delivery Method 03/08/22 18:45 Scores HEART Score Heart Score history: Slightly Suspicious Heart Score EKG: Normal Heart Score Age: 45-64 years old Heart Score risk factors: > 3 risk factors or hx of atherosclerotic disease Heart Score troponin: < or = to normal limit Heart Score Total: 3 Course Course Course Narrative: No new issues during course of stay Orders Ordered: ED Orders 03/08/22 18:48 XR chest 1V Stat EKG-12 Lead Stat 03/08/22 18:50 Complete Blood Count AUTO DIFF Stat Comprehensive Metabolic Panel Stat Lipase Stat Magnesium Stat Troponin & CK Cardiac Panel Stat 03/08/22 22:07 Troponin I Stat 03/09/22 01:12 COVID19 -Nasal RAPID/Pre-Proc Stat Acetaminophen (Acetaminophen 325 Mg Tablet) 650 mg PO Q6HR PRN PRN Reason: Fever/Mild Pain (1-3) Aspirin (Aspirin Ec 325 Mg Tablet) 325 mg PO DAILY [facility] Atorvastatin Calcium (Atorvastatin 20 Mg Tablet) 20 mg PO BEDTIME [facility] Calcium Carbonate (Calcium Carbonate 500 Mg Tab) 1,000 mg PO Q4HR PRN PRN Reason: Dyspepsia Dextrose (Dextrose 50 % In Water 25 Gm/50 Ml Syringe) 25 gm IV PRN PRN PRN Reason: Hypoglycemia Enoxaparin Sodium (Enoxaparin 40 Mg/0.4 Ml Syringe) 40 mg SUBCUT DAILY [facility] Famotidine (Famotidine 20 Mg Tablet) 20 mg PO BEDTIME [facility] Ferrous Sulfate (Ferrous Sulfate 325 Mg Tablet) 325 mg PO DAILY [facility] Insulin Human Lispro (Insulin Lispro 100 Unit/Ml 3ml Vial) 0 unit SUBCUT ACHS [facility]; Protocol Levothyroxine Sodium (Levothyroxine 100 Mcg Tablet) 100 mcg PO QACBREAK [facility] Morphine Sulfate (Morphine 2 Mg/Ml Inj) 2 mg IV Q5MIN PRN PRN Reason: Chest Pain Nitroglycerin (Nitroglycerin 0.4 Mg Sl Tab) 0.4 mg SL [id number] PRN PRN Reason: Chest Pain Ondansetron HCl (Ondansetron 4 Mg Odt) 4 mg PO Q8HR PRN PRN Reason: Nausea And Vomiting Discontinued Medications Aspirin (Aspirin 81 Mg Chew Tab) 324 mg PO NOW ONE Stop: 03/08/22 18:51 Last Admin: 03/08/22 18:54 Dose: 324 mg Documented By: CTS Nitroglycerin (Nitroglycerin Oint 1 Inch/Gm Oint...G.) 1 inch TOP NOW ONE Stop: 03/08/22 23:05 Last Admin: 03/08/22 23:13 Dose: 1 inch Documented By: BS Reevaluation(s) Reevaluation #1: Chest pain-free after nitro paste. Blood pressure did improve 139/65. Time: 00:41 Consultations Consultation #1: Spoke with cardiology, dr johnson, recommends admission due to elevated blood pressure relief with nitro paste chest pain free now. Review of stress test recommendation of nuclear stress test if persisting symptoms or concern Time: 00:41 Consultation #2: Spoke with hospitalist, Maddison Guillory, she will admit patient Time: 00:54 Vital Signs Vital signs: Vital Signs - 8 hr 03/08/22 18:45 03/08/22 22:32 03/08/22 23:13 Temperature 97.9 F Pulse Rate 88 68 66 Respiratory Rate 18 12 Blood Pressure 181/86 H 172/78 H 167/77 H Pulse Oximetry 98 96 Oxygen Delivery Method Room Air 03/08/22 23:00 03/08/22 23:14 03/08/22 23:14 Temperature Pulse Rate 67 66 Respiratory Rate 18 18 Blood Pressure 167/77 H Pulse Oximetry 96 97 Oxygen Delivery Method 03/08/22 23:20 03/08/22 23:20 03/08/22 23:25 Temperature Pulse Rate 69 69 Respiratory Rate 18 16 Blood Pressure 154/73 H Pulse Oximetry 95 95 Oxygen Delivery Method 03/08/22 23:25 03/08/22 23:30 03/08/22 23:30 Temperature Pulse Rate 67 Respiratory Rate 13 Blood Pressure 149/68 H 132/63 Pulse Oximetry 92 Oxygen Delivery Method 03/08/22 23:35 03/08/22 23:35 03/08/22 23:40 Temperature Pulse Rate 67 67 Respiratory Rate 19 12 Blood Pressure 110/61 Pulse Oximetry 95 93 Oxygen Delivery Method Room Air 03/08/22 23:40 03/08/22 23:45 03/08/22 23:45 Temperature Pulse Rate 70 Respiratory Rate 12 Blood Pressure 148/77 H 152/80 H Pulse Oximetry 92 Oxygen Delivery Method 03/08/22 23:50 03/08/22 23:50 03/08/22 23:56 Temperature Pulse Rate 70 85 Respiratory Rate 14 Blood Pressure 142/63 H Pulse Oximetry 93 95 Oxygen Delivery Method 03/08/22 23:56 03/09/22 00:00 03/09/22 00:01 Temperature Pulse Rate 67 Respiratory Rate 17 Blood Pressure 162/77 H 156/65 H Pulse Oximetry 94 Oxygen Delivery Method 03/09/22 00:01 03/09/22 00:05 03/09/22 00:05 Temperature Pulse Rate 69 73 Respiratory Rate 16 24 Blood Pressure 147/70 H Pulse Oximetry 95 96 Oxygen Delivery Method 03/09/22 00:10 03/09/22 00:10 03/09/22 00:15 Temperature Pulse Rate 69 Respiratory Rate 14 Blood Pressure 155/69 H 139/65 Pulse Oximetry 95 Oxygen Delivery Method 03/09/22 00:15 03/09/22 00:20 03/09/22 00:20 Temperature Pulse Rate 68 69 Respiratory Rate 12 11 L Blood Pressure 136/63 Pulse Oximetry 93 93 Oxygen Delivery Method 03/09/22 00:30 03/09/22 00:30 Temperature Pulse Rate 70 Respiratory Rate 14 Blood Pressure 141/65 H Pulse Oximetry 94 Oxygen Delivery Method MDM - Chest Pain Differential Diagnosis Differential diagnosis: Likely stable angina, unstable angina pectoris, atypical chest pain, st elevation myocardial infarction and chest pain Medical Records Data Medical records narrative: [address] [address] Procedure Note Patient: Carolann Guajardo MR#: [id number] : 1965 Acct:[id number] Age/Sex: 55 / F ? Date of Service: 04/26/21 Provider:?Bridger Obrien MD Cardiac Stress Test Report Referral & Results Date Patient Seen: 04/26/21 Time Patient Seen: 09:30 Requesting provider: Bridger Obrien Indication: Chest pain Rest ECG: NSR Procedure Note: Today following both written and verbal informed consent, the patient was exercised according to a standard Tigre protocol.? The patient exercised for a total of 7 minutes 19 seconds achieving a maximum heart rate of 169.? Patient's maximum systolic blood pressure was 2 10 ? This was an estimated 10.1 METs. Exaggerated hemodynamic response to exercise.? Average exercise capacity (FA I +5% on active scale).? Rare PVCs.? [address] deviations in inferior leads that resolved rapidly with rest.? Presenting symptoms not reproduced at peak exercise, but did have new retrosternal chest pain 1-2/10 that resolved quickly with rest. Impression: Intermediate probability for ischemia.? Follow-up Cardiolite may be appropriate if clinically indicated.? Will discuss at our next visit.? Ortega treadmill score of -2 is correlated with 90% 5 year survival rate from cardiac causes of mortality. Please note: Actual ECG tracings can be found in the PACS system. Signed By:<Electronically signed by Bridger Obrien MD> 04/26/21 0954 Lab Data Result diagrams: 03/08/22 18:50 03/08/22 18:50 Labs: Lab Results 03/08/22 03/08/22 03/08/22 Range/Units 18:50 18:50 22:07 WBC 5.4 (4.5-11.0) X10^3/uL RBC 4.46 (4.0-5.2) X10^6/uL Hgb 13.3 (12.0-16.0) g/dL Hct 38.2 (36-46) % MCV 85.8 (80-100) fL MCH 29.9 (26-34) PG MCHC 34.8 (30-36) % RDW 14.1 (11.6-14.8) % Plt Count 215 (150-400) X10^3/uL Neut % (Auto) 55.4 (50-75) % Lymph % (Auto) 32.1 (25-40) % Maverick % (Auto) 8.0 (3-14) % Eos % (Auto) 3.9 (2-4) % Baso % (Auto) 0.6 (0-2) % Neut # (Auto) 3000 (1112-0849) /uL Lymph # (Auto) 1700 (0492-4145) /uL Maverick # (Auto) 400 (0-900) /uL Eos # (Auto) 200 (0-450) /uL Baso # (Auto) 0 (0-100) /uL Sodium 136 L (137-145) mmol/L Potassium 3.7 (3.4-5.1) mmol/L Chloride 100 (98-107) mmol/L Carbon Dioxide 28 (22-32) mmol/L BUN 16 (7-17) mg/dL Creatinine 0.72 (0.52-1.04) mg/dL Estimated GFR > 60 (>60) mL/min BUN/Creatinine Ratio 22.2 H (6-22) Glucose 248 H (70-100) mg/dL Calcium 9.2 (8.4-10.2) mg/dL Magnesium 1.7 (1.6-2.3) mg/dL Total Bilirubin 0.4 (0.2-1.3) mg/dL AST 30 (14-36) IU/L ALT 40 H (<35) IU/L Alkaline Phosphatase 98 (38-126) U/L Total Creatine Kinase 63 (30-135) U/L CK-MB (CK-2) TNP CK-MB (CK-2) Rel Index TNP Troponin I < 0.012 < 0.012 (0.01-0.034) ng/mL Total Protein 7.5 (6.3-8.2) g/dL Albumin 4.6 (3.5-5.0) g/dL Globulin 2.9 (1.7-4.1) g/dL Albumin/Globulin Ratio 1.6 (1.0-2.8) Lipase 91 (23-300) U/L Imaging Data Chest x-ray: Radiologist's Impression: [address] [address] XRay Report Signed Patient: Carolann Guajardo MR#: [id number] : 1965 Acct:[id number] Age/Sex: 56 / F Date of Service: 03/08/22 Loc: ED Accession Number: [id number] ?? Procedure: XR chest 1V Ordering Provider: Bennie Rizvi MD PROCEDURE:? XR CHEST 1V ? INDICATIONS:? chest pain ? TECHNIQUE:? One view of the chest was acquired.? ? COMPARISON:? [facility], CR, XR CHEST 1V, 04/14/2021, 13:52. ? FINDINGS:? ? Surgical changes and devices:? None.? ? Lungs and pleura:? Low lung volumes.? Lungs are clear.? No pleural effusions or pneumothorax.? ? Mediastinum:? Mediastinal contours appear normal.? Heart size is normal.? ? Bones and chest wall:? No suspicious bony lesions.? Overlying soft tissues appear unremarkable.? ? IMPRESSION:? Given low lung volumes, no acute cardiopulmonary disease. ? ? Dictated by: Grace Delgado M.D. on 03/08/2022 at 20:04 ? ? Approved by: Grace Delgado M.D. on 03/08/2022 at 20:06 ? ECG Data Interpretation: Normal sinus rhythm normal EKG rate [address] elevation or depression MDM Narrative Medical decision making narrative: Appropriate for admission. I did review past stress test and recommend nuclear stress test for any concerns. Patient was hypertensive and did improve with nitro paste as well as resolved chest pain. Reviewed with continuity editor and hospitalist and agree for admit. Patient agrees for admit as well. Discharge Plan Departure Patient Disposition: Admitted as Observation Clinical Impression: Chest pain Admit Date/Time: 03/09/22 00:57 Admit Provider: Maddison Guillory
[2022-03-08] MEDS: NITROGLYCERIN OINT 1 INCH/GM OINT...G. TOP (23:13)
--- NOTE | 2022-03-08 23:38 | PC.NURSE ---
patient reports that the nitro paste took her pain from a 4/10 to a 1/10 pain scale. provider aware.
[2022-03-09] VITALS (20 sets, daily range): BP systolic 121–156; BP diastolic 59–85; PULSE 63–75; RESP 9–24; TEMP 36.2–36.8; O2SAT 93–98; BMI 37.5
--- NOTE | 2022-03-09 01:06 | DI.ECHO.S_ITS ---
[facility] +---------+ : : [address] : [address] : : : : [id number] : : : : Phone: [phone]+ Echocardiogram Report + + :Name: JENNIFER CADE Study Date: 03/09/2022 Height: 67 in : :[facility] ReadingLocation: Weight: 240 lb : : Gender: Female BSA: 2.2 m2 : :: 1965 Age: 56 yrs BP: 138/66 mmHg: :Reason For Study: CP WITH HYPERTENSION URGENCY : :Ordering Physician: RUSSELL, : :WING Performed By: Karen Ho : :Referring: WING WELLS : + + Interpretation Summary The left ventricle is normal in size. The ejection fraction is estimated to be 55-60%. This is unchanged compared to the previous study. The right ventricle is at the upper limits of normal in size. The right ventricular systolic function is normal. No significant valvular pathology seen. Procedure: A two-dimensional transthoracic echocardiogram with color flow and Doppler was performed. The study quality was technically adequate. Comparison is made with the echocardiogram of 05/02/2021. The patient was in sinus rhythm with heart rates between 65-75 bpm during the exam. Left Ventricle: The left ventricle is normal in size. Proximal septal thickening is noted. There is no echo evidence for significant left ventricular outflow tract obstruction. There is no thrombus. The ejection fraction is estimated to be 55-60%. This is unchanged compared to the previous study. There are no focal wall motion abnormalities. Diastolic parameters suggest a relaxation abnormality of the left ventricle, consistent with probable normal filling pressures. Right Ventricle: The right ventricle is at the upper limits of normal in size. The right ventricular systolic function is normal. Atria: The left atrial size is normal. There has been no significant change since the previous study. Right atrial size is normal. There is no Doppler evidence for an interatrial shunt. Mitral Valve: The mitral valve is normal in structure and function. There is trace mitral regurgitation. Aortic Valve: The aortic valve is trileaflet. The aortic valve opens well. There is no aortic valve stenosis. No aortic regurgitation is present. Tricuspid Valve: The tricuspid valve is not well visualized, but is grossly normal. There is trace tricuspid regurgitation. Right ventricular systolic pressure is estimated to be 19 mmHg plus the clinically estimated CVP which cannot be estimated on this exam. Pulmonic Valve: The pulmonic valve is not well visualized. There is no pulmonic valvular regurgitation. Great Vessels: The aortic root is normal size. The dimensions of the ascending aorta are normal. The inferior vena cava was not well visualized. Pericardium/ Pleura There is no pericardial effusion. There is an anterior echo-free space consistent with a fat pad. There is no pleural effusion. MMode/2D Measurements & Calculations LVIDd: 4.1 cm LVOT diam: 2.1 cm LVIDs: 2.7 cm Ao root diam: 3.2 cm FS: 34.5 % asc Aorta Diam: 2.9 cm EPSS: 0.73 cm Ao Arch Diam (Prox Trans): 2.6 cm IVSd: 1.1 cm LVPWd: 0.98 cm LV almaraz. diameter/BSA (cm/m^2): 1.9 LV sys. diameter/BSA (cm/m^2): 1.2 LA A2 area: 18.5 cm2 RA long axis: 5.2 cm LA A4 area: 15.7 cm2 RA area: 15.8 cm2 LA length (vol): 4.8 cm RA vol: 41.0 ml LA vol: 51.4 ml RA : 18.8 ml/m2 LA vol index: 23.5 ml/m2 RVD1 (basal): 4.0 cm RVD2 (mid): 3.0 cm TAPSE: 2.4 cm Doppler Measurements & Calculations Ao V2 max: 106.9 cm/sec LVOT Max Iam: 82.1 cm/sec Ao V2 mean: 81.2 cm/sec LV V1 max P.7 mmHg Ao max P.6 mmHg LV V1 VTI: 19.0 cm Ao mean P.9 mmHg TIFFANY(I,D): 3.0 cm2 Ao V2 VTI: 23.2 cm TIFFANY(V,D): 2.8 cm2 sev ratio: 0.82 TIFFANY indexed to BSA (cm^2/m^2): 1.4 MV E max iam: 65.3 cm/sec TR max iam: 217.3 cm/sec MV A max iam: 68.4 cm/sec TR max P.9 mmHg MV E/A: 0.96 PA V2 max: 97.6 cm/sec Med Peak E' Iam: 6.0 cm/sec PA V2 mean: 69.8 cm/sec E/E' med: 10.8 PA mean P.1 mmHg Lat Peak E' Iam: 6.7 cm/sec PA pr(Accel): 29.3 mmHg E/E' lat: 9.7 E/e' average: 10.3 MV dec time: 0.25 sec SV(CRISTY): 68.9 ml Reading Physician:01:12 PM
--- NOTE | 2022-03-09 01:06 | DI.NM.S_ITS ---
PROCEDURE: NM CLOVIS PERF SPECT REST & STR Rest and exercise myocardial perfusion SPECT with gated imaging and ejection fraction RADIOPHARMACEUTICAL: 24.9 mCi Tc-99m sestamibi IV at rest and 26.7 mCi Tc-99m sestamibi IV at peak exercise. A [id number] was performed. INDICATIONS: CP w/HTN urgency TECHNIQUE: Radiopharmaceutical was injected at peak stress test, and also at rest. SPECT images were obtained. SPECT myocardial perfusion images were displayed in short axis, horizontal long axis, and vertical long axis views. Gated images were reviewed using Nanos[employer] software. COMPARISON: None. CARDIAC STRESS: A standard Tigre treadmill exercise tolerance test was performed by the patient under the supervision of an attending staff. The patient exercised for 7 minutes and 30 seconds; 7.5 METS; functional aerobic impairment (JAKE) is -1% %. Hemodynamic data: There is normal blood pressure and heart rate response to exercise stress. Patient achieved 103% of maximum predicted heart rate at peak exercise. Maximum blood pressure 160/90. Symptoms: Patient denied chest pain during exercise. EKG: No diagnostic EKG changes of ischemia; no ectopy. FINDINGS: Raw data: There is good myocardial labeling by radiotracer. No significant motion artifacts. Qgxo-pb-vequy ratio is 0.35 (normal is less than 0.38 for sestamibi tracer, and less than 0.50 for thallium tracer). Left ventricle function: Gated images demonstrate normal left ventricle wall thickening. No segmental wall motion abnormality. No transient ischemic dilation; TID is 0.96 (normal less than 1.3). The left ventricle resting end-diastolic volume is 91 mL. Left ventricle stress ejection fraction is 68%; normal values are above 45%. Myocardial perfusion: There is normal distribution of activity in the left and right ventricular myocardium. No fixed or reversible perfusion defects. IMPRESSION: Low risk study. No evidence of exercise-induced ischemia on ECG or SPECT imaging. Normal hemodynamic response to exercise. Fair exercise capacity. Dictated by: Megan Forbes D.O. on 03/10/2022 at 16:33 Approved by: Megan Forbes D.O. on 03/10/2022 at 16:36
[2022-03-09 01:39] LABS: COVID19 -Nasal RAPID Negative (Negative)
[2022-03-09] MEDS: ACETAMINOPHEN 325 MG TABLET 650 MG PO ×2 (02:52→11:29)
[2022-03-09] MEDS: ATORVASTATIN 20 MG TABLET PO ×2 (02:52→21:21)
--- NOTE | 2022-03-09 02:53 | PM.HP.1 ---
History of Present Illness History of Present Illness Date Patient Seen: 03/09/22 Time Patient Seen: 01:18 Chief complaint: Chest pains Narrative: Carolann Guajardo is a 56-year-old female with a medical history of hypertension, bqy-qvflhmv-nzwiqsisv type 2 diabetes, hyperlipidemia, hypothyroidism, anemia, obesity and GERD who presents to the emergency room today with chest pain for the last 48 hours and hypertensive urgency. Patient in unsure what she was doing when the chest pain began, but does not believe she was doing anything strenuous. States that her chest discomfort is upper mid sternum, constant, does not radiate, approximately 4/10 normally, improved at the time of admit to 10 following Nitro paste. She describes Chest pain as burning & feeling my pulse throughout my entire body with pressure, she cannot recall if activity or movement worsen, she did not experience worsening chest discomfort on her exercise bike yesterday, it does not seem to change or improve with rest, she has experienced excessive fatigue, headache, no changes in vision, diaphoresis, shortness of breath, numbness, tingling, weakness, new swelling of hands or feet, falls, difficulty with ambulation, difficulty swallowing, difficulty with speech, denies upper respiratory symptoms, cough, abdominal pain, nausea, vomiting, diarrhea, chills, fever, body aches, changes to medication, recent illness injury or trauma. I reviewed patient's medical records PCP is Dr. Obrien whom she recently established when, patient had an exercise stress test Dr. Polanco 2020 no evidence of any convincing ischemic changes. Patient had an echo 05/02/[address] Xiao EF 55-60%. ED Consultation #1: Spoke with cardiology, dr johnson, recommends admission due to elevated blood pressure relief with nitro paste chest pain free now.? Review of stress test recommendation of nuclear stress test if persisting symptoms or concern Initial blood pressures in the ED 181/86, 172/78, at the time of admit vital signs have stabilized, afebrile temp 97.9?, BP 139/65, HR 68, R 12, O2 saturation 93% on room air. Patient's CBC, CMP and liver panel are all unremarkable with the exception of a glucose 248, patient's initial troponins x2 are normal, heart score: 3, patient's EKG normal sinus rhythm with a rate of [address] or T-wave changes. Patient's chest x-ray demonstrated low lung volumes, but no acute cardiopulmonary process. Patient admitted for chest pain with hypertensive urgency. Patient History Medical History Depression (~1989) Essential hypertension GERD (gastroesophageal reflux disease) (~1994) Hyperlipidemia associated with type 2 diabetes mellitus Hypothyroidism (~1994) IBS (irritable bowel syndrome) Rosacea Type 2 diabetes mellitus Surgical History Status post endometrial ablation (~2010) Status post tonsillectomy and adenoidectomy (1983) Family & Social History Family History Father Age: 79 CAD (coronary artery disease) High cholesterol S/P CABG (coronary artery bypass graft) Grandfather CAD (coronary artery disease) CVA (cerebral vascular accident) Grandmother Age: 95 CAD (coronary artery disease) Hypertension Malignant neoplasm of uterus, unspecified site Grandfather Age: 77 CAD (coronary artery disease) Hypertension High cholesterol Grandmother Age: 101 Essential hypertension High cholesterol Social History: household members spouse Safety & Behavioral: Feels Safe in Current Yes Environment Tobacco & Substance use: Smoking Status Never smoker alcohol intake former alcohol intake frequency holiday/special occasion Substance Use Type does not use Meds Home Medications and Allergies Home Medications Medication Instructions Recorded Confirmed Type fluocinolone 0.025 % topical cream 1 applic topical BID #15 grams 06/07/20 03/09/22 Rx omeprazole 20 mg capsule,delayed 20 mg PO QDAY #90 caps 06/07/20 05/02/21 Rx release ferrous sulfate 325 mg (65 mg 325 mg PO DAILY 02/02/21 05/02/21 History iron) tablet (FeroSul) aspirin 81 mg tablet,delayed 81 mg PO DAILY 05/02/21 03/09/22 History release (Adult Low Dose Aspirin) famotidine 20 mg tablet 20 mg PO BEDTIME 05/02/21 03/09/22 History glipizide 10 mg tablet, extended 10 mg PO DAILY #90 tabs 09/07/21 03/09/22 Rx release 24 hr levothyroxine 100 mcg tablet 100 mcg PO DAILY #90 tabs 11/25/21 03/09/22 Rx metformin 1,000 mg tablet 1,000 mg PO BID #180 tabs 11/25/21 03/09/22 Rx atorvastatin 20 mg tablet (Lipitor) 20 mg PO HS #90 tabs 12/26/21 03/09/22 Rx Allergies Allergy/AdvReac Type Severity Reaction Status Date / Time No Known Drug Allergies Allergy Verified 03/08/22 18:48 Review of Systems Review of Systems Narrative: All 12 point systems reviewed with the patient and are negative except otherwise documented. Exam Vital Signs (past 8 hours): - 03/08/22 22:32 03/08/22 23:13 03/08/22 23:00 Pulse Rate 68 66 67 Respiratory Rate 12 18 Blood Pressure 172/78 H 167/77 H Pulse Oximetry 96 96 Oxygen Delivery Method 03/08/22 23:14 03/08/22 23:14 03/08/22 23:20 Pulse Rate 66 69 Respiratory Rate 18 18 Blood Pressure 167/77 H Pulse Oximetry 97 95 Oxygen Delivery Method 03/08/22 23:20 03/08/22 23:25 03/08/22 23:25 Pulse Rate 69 Respiratory Rate 16 Blood Pressure 154/73 H 149/68 H Pulse Oximetry 95 Oxygen Delivery Method 03/08/22 23:30 03/08/22 23:30 03/08/22 23:35 Pulse Rate 67 67 Respiratory Rate 13 19 Blood Pressure 132/63 Pulse Oximetry 92 95 Oxygen Delivery Method Room Air 03/08/22 23:35 03/08/22 23:40 03/08/22 23:40 Pulse Rate 67 Respiratory Rate 12 Blood Pressure 110/61 148/77 H Pulse Oximetry 93 Oxygen Delivery Method 03/08/22 23:45 03/08/22 23:45 03/08/22 23:50 Pulse Rate 70 70 Respiratory Rate 12 14 Blood Pressure 152/80 H Pulse Oximetry 92 93 Oxygen Delivery Method 03/08/22 23:50 03/08/22 23:56 03/08/22 23:56 Pulse Rate 85 Respiratory Rate Blood Pressure 142/63 H 162/77 H Pulse Oximetry 95 Oxygen Delivery Method 03/09/22 00:00 03/09/22 00:01 03/09/22 00:01 Pulse Rate 67 69 Respiratory Rate 17 16 Blood Pressure 156/65 H Pulse Oximetry 94 95 Oxygen Delivery Method 03/09/22 00:05 03/09/22 00:05 03/09/22 00:10 Pulse Rate 73 Respiratory Rate 24 Blood Pressure 147/70 H 155/69 H Pulse Oximetry 96 Oxygen Delivery Method 03/09/22 00:10 03/09/22 00:15 03/09/22 00:15 Pulse Rate 69 68 Respiratory Rate 14 12 Blood Pressure 139/65 Pulse Oximetry 95 93 Oxygen Delivery Method 03/09/22 00:20 03/09/22 00:20 03/09/22 00:30 Pulse Rate 69 Respiratory Rate 11 L Blood Pressure 136/63 141/65 H Pulse Oximetry 93 Oxygen Delivery Method 03/09/22 00:30 03/09/22 01:00 03/09/22 01:00 Pulse Rate 70 70 Respiratory Rate 14 9 L Blood Pressure 141/65 H Pulse Oximetry 94 96 Oxygen Delivery Method 03/09/22 01:30 03/09/22 01:30 Pulse Rate 68 Respiratory Rate 18 Blood Pressure 121/59 L Pulse Oximetry 93 Oxygen Delivery Method Oxygen Delivery Method Room Air Narrative Exam Narrative: General: Patient is a well-developed, well-nourished delightful obese female in no distress at this time. HEENT: Normocephalic, atraumatic, extraocular muscles intact, oral pharynx is clear and mucous membranes are moist. Neck is supple and symmetric, trachea is midline, no adenopathy, no thyroid enlargement, nontender, no masses palpated. Negative for JVD Chest: Normal AP diameter and contour without kyphoscoliosis, no nasal flaring, retractions, or tachypneic labored Lungs: Auscultation of all lung colunga are clear without adventitious sounds, wheezes, rhonchi, or rales. Cardio: S1 & S2 with regular rate and rhythm without murmur, rubs, or gallops, no carotid bruit, no cardiac pulsations present. Abdomen: Soft nontender, negative for organomegaly, or masses. Bowel sounds are present in all 4 quadrants without guarding or rebound, no CVA tenderness. Musculoskeletal: Muscle strength and tone are equal within normal limits, no deformity, crepitus, effusions, cyanosis, clubbing or edema present. Full range of motion intact radial and pedal pulses are normal. Skin: Warm dry and intact without rashes, ulcerations or petechiae. Neuro: Alert and orientated x3, strength is +5/5 in all extremities, sensation to touch intact, no gross deficits noted of cranial nerves. Psych: Patient has a well-kept appearance, appropriate affect, mental status attitude thought context and judgment are appropriate for age. Objective Labs Result Diagrams: 03/08/22 18:50 03/08/22 18:50 Labs: Laboratory Results - last 24 hr 03/08/22 03/08/22 03/08/22 18:50 18:50 22:07 WBC 5.4 RBC 4.46 Hgb 13.3 Hct 38.2 MCV 85.8 MCH 29.9 MCHC 34.8 RDW 14.1 Plt Count 215 Neut % (Auto) 55.4 Lymph % (Auto) 32.1 Rogers % (Auto) 8.0 Eos % (Auto) 3.9 Baso % (Auto) 0.6 Neut # (Auto) 3000 Lymph # (Auto) 1700 Rogers # (Auto) 400 Eos # (Auto) 200 Baso # (Auto) 0 Sodium 136 L Potassium 3.7 Chloride 100 Carbon Dioxide 28 BUN 16 Creatinine 0.72 Estimated GFR > 60 BUN/Creatinine Ratio 22.2 H Glucose 248 H Calcium 9.2 Magnesium 1.7 Total Bilirubin 0.4 AST 30 ALT 40 H Alkaline Phosphatase 98 Total Creatine Kinase 63 CK-MB (CK-2) TNP CK-MB (CK-2) Rel Index TNP Troponin I < 0.012 < 0.012 Total Protein 7.5 Albumin 4.6 Globulin 2.9 Albumin/Globulin Ratio 1.6 Lipase 91 SARS-CoV-2 (PCR) 03/09/22 01:12 WBC RBC Hgb Hct MCV MCH MCHC RDW Plt Count Neut % (Auto) Lymph % (Auto) Rogers % (Auto) Eos % (Auto) Baso % (Auto) Neut # (Auto) Lymph # (Auto) Rogers # (Auto) Eos # (Auto) Baso # (Auto) Sodium Potassium Chloride Carbon Dioxide BUN Creatinine Estimated GFR BUN/Creatinine Ratio Glucose Calcium Magnesium Total Bilirubin AST ALT Alkaline Phosphatase Total Creatine Kinase CK-MB (CK-2) CK-MB (CK-2) Rel Index Troponin I Total Protein Albumin Globulin Albumin/Globulin Ratio Lipase SARS-CoV-2 (PCR) Negative Assessment & Plan Assessment & Plan narrative: Carolann Guajardo is a 56-year-old female with a medical history of hypertension, byd-yueqekc-hcgkewcun type 2 diabetes, hyperlipidemia, hypothyroidism, anemia, obesity and GERD who presents to the emergency room today with chest pain for the last 48 hours and hypertensive urgency, with a prior echo in stress in 2020 with recommendations for a nucleolar stress test if symptoms persist or worsen. 1. Chest Pain, acute, present on admission -patient is stable in no distress -Heart Score:3, Significant Family HX of cardiovascular disease, medical Hx of hypertension, hyperlipidemia, DM, & Obesity -ASA, MS, Nitro for Chest Pain -Echo & NM stress test ordered for tomorrow -Telemetry -troponin x2 negative-Repeat in Am 2. Hypertensive urgency in the setting essential hypertension, acute on chronic, present on admission -initial BP's 181/86, 172/78, upon admit 139/65 -Patient not on any medication for HTN - will initiate Lisinopril 10mg daily -2week f/u dr. Obrien for evaluation -Provide Patient education regarding lisinopril, in keeping blood pressure log for review with PCP. 3. Hyperlipidemia secondary to ojd-mnxzrgq-tjktryqpq type 2 diabetes, uncontrolled hyperglycemia, acute on chronic, present on admission -initial glucose 248, A1c ordered -lipids ordered -patient admitted under diabetic protocol, low carb diet, placed on medium sliding scale blood sugar checks a.c. HS -hold patient's metformin and glipizide -continue Lipitor 4. Hypothyroidism, acquired, chronic, present on admission -ordered TSH with reflex T4 -continue levothyroxine 5. GERD, chronic, present on admission -continue Famotidine 6. Anemia, chronic, iron deficiency, present on admission -H&H within normal limits -continue ferrous sulfate 7. Obesity as evidence by BMI of 37.6, acute on chronic, present on admission -dietary consult ordered regarding diet lifestyle weight loss and exercise changes. Code status:Full Surrogate decision maker: Curtis Guajardo -Spouse COVID PCR:Negative DVT/VTE prophylaxis: Lovenox and SCDs Disposition: Patient admitted for chest pain and hypertensive urgency, risk stratification echo and stress test for observation expected length of stay less than 2 midnights. I have utilized all available immediate resources to obtain, update, or review the patient's current medications. I confirmed that the patient's advanced care plan is present, Code status is documented and/or surrogate decision maker is listed in the patient's medical record. Time Spent With Patient Critical Care time: I spent a total of [] minutes of critical care time on this patient's care today; this time is exclusive of procedural time.
[2022-03-09] MEDS: FAMOTIDINE 20 MG TABLET PO ×2 (03:10→21:21)
[2022-03-09 03:46] LABS: Hemoglobin A1C% w Est Avg Glu 7.9 % (4.0-6.0)
[2022-03-09 05:40] LABS: INR 1.1 (0.9-1.3); Prothrombin Time 12.6 SECONDS (10.1-12.7)
[2022-03-09 05:47] LABS: Cholesterol 125 mg/dL (140-199); HDL Cholesterol 33 mg/dL (40-60); LDL Cholesterol Calculated 67 mg/dL (<100); Triglycerides 124 mg/dL (35-150)
[2022-03-09 05:57] LABS: NT-proBNP (BNP-Adult 18+) < 11 pg/mL (<125); Troponin I < 0.012 ng/mL (0.01-0.034)
[2022-03-09 06:46] LABS: TSH w/ Reflex to FT4 1.83 uIU/mL (0.47-4.68)
[2022-03-09] MEDS: LEVOTHYROXINE 100 MCG TABLET PO (07:59)
[2022-03-09] MEDS: ENOXAPARIN 40 MG/0.4 ML SYRINGE SUBCUT (08:11)
--- NOTE | 2022-03-09 13:08 | CM.DANOTE ---
DCP Assessment: Payor: BROOKS PCP: MD Camille Pt is a 56 y.o. F who presented to the ED with chest pain. Pt has a PMH of HTN, GERD, DM Type 2, and depression. Pt admitted to the floor for a stress test and further management and evaluation of her symptoms. DCP met with pt this morning to discuss discharge needs. Pt laying in bed. DCP introduced herself and role. Pt states that she lives in a 1 story house in [place] with her spouse, Nav. Pt states that she is independent at baseline and still drives POV. Pt miller any DME use. Pt to have a stress test today. Pt denies any resources at this time. DCP does not identify any needs for this patient at this time. Whiteboard updated and instructed to call with any other questions that might arise. Pt thankful for discussion. P: Pt to have a stress test. Once pt is medically stable, pt to discharge home via POV. DCP to continue to follow. Brooke Ariza RN/SERGIO Discharge Planning/Care Management CM Discharge Assessment Start: 03/09/22 11:25 Freq: Status: Active Protocol: Document 03/09/22 11:26 [email or web address] (Rec: 03/09/22 11:26 [id number]) Discharge Planning Assessment Assigned Reading Efficiency Course Director Brooke Ariza RN/SERGIO Advance Directives? No History Provided By Patient Prior Living Arrangements House Household Members spouse,children Type of transporation used prior to Drives own vehicle admit Independent with ADL's Yes Is patient alert and oriented? Yes Caregiver for Another No Discharge Plan Home Transportation Arrangement POV Referrals Initiated None needed Whiteboard Updated in Patient Room with Yes name and ext. # of Reading Efficiency Course Director Comment Instructed to call Review Status In Process Please Provide Date Initial DC 03/09/22 Assessment Was Performed Next Review Type Continued Stay Review
[2022-03-10] VITALS (8 sets, daily range): BP systolic 123–141; BP diastolic 56–70; PULSE 60–80; RESP 16; TEMP 35.7–36.6; O2SAT 93–98
[2022-03-10] MEDS: LEVOTHYROXINE 100 MCG TABLET PO (06:52)
[2022-03-10] MEDS: INSULIN LISPRO 100 UNIT/ML 3ML VIAL SUBCUT (09:31)
[2022-03-10] MEDS: ASPIRIN EC 325 MG TABLET PO (09:37)
[2022-03-10] MEDS: ENOXAPARIN 40 MG/0.4 ML SYRINGE SUBCUT (09:37)
--- NOTE | 2022-03-10 12:47 | PC.NURSE ---
Day shift: Pt off unit for Stress Test at approx 1230. Off ICU tele at this time also.
--- NOTE | 2022-03-10 14:04 | PC.NURSE ---
Day shift: Pt back in room and back on tele at approx 1400. Denies any chest pain.
--- NOTE | 2022-03-10 16:41 | PM.DS.1 ---
History of Present Illness History of Present Illness Date Patient Seen: 03/10/22 Time Patient Seen: 16:41 Chief complaint: Chest pains Narrative: Per Maddison Guillory, [facility]-: Carolann Guajardo is a 56-year-old female with a medical history of hypertension, nbs-caubtvs-zaodxllvt type 2 diabetes, hyperlipidemia, hypothyroidism, anemia, obesity and GERD who presents to the emergency room today with chest pain for the last 48 hours and hypertensive urgency. Patient in unsure what she was doing when the chest pain began, but does not believe she was doing anything strenuous. States that her chest discomfort is upper mid sternum, constant, does not radiate, approximately 4/10 normally, improved at the time of admit to 1/10 following Nitro paste. She describes Chest pain as burning & feeling my pulse throughout my entire body with pressure, she cannot recall if activity or movement worsen, she did not experience worsening chest discomfort on her exercise bike yesterday, it does not seem to change or improve with rest, she has experienced excessive fatigue, headache, no changes in vision, diaphoresis, shortness of breath, numbness, tingling, weakness, new swelling of hands or feet, falls, difficulty with ambulation, difficulty swallowing, difficulty with speech, denies upper respiratory symptoms, cough, abdominal pain, nausea, vomiting, diarrhea, chills, fever, body aches, changes to medication, recent illness injury or trauma. I reviewed patient's medical records PCP is Dr. Obrien whom she recently established when, patient had an exercise stress test Dr. Polanco 2020 no evidence of any convincing ischemic changes. Patient had an echo 05/02/[address] Xiao EF 55-60%. ED Consultation #1: Spoke with cardiology, dr johnson, recommends admission due to elevated blood pressure relief with nitro paste chest pain free now.? Review of stress test recommendation of nuclear stress test if persisting symptoms or concern Initial blood pressures in the ED 181/86, 172/78, at the time of admit vital signs have stabilized, afebrile temp 97.9?, BP 139/65, HR 68, R 12, O2 saturation 93% on room air. Patient's CBC, CMP and liver panel are all unremarkable with the exception of a glucose 248, patient's initial troponins x2 are normal, heart score: 3, patient's EKG normal sinus rhythm with a rate of [address] or T-wave changes. Patient's chest x-ray demonstrated low lung volumes, but no acute cardiopulmonary process. Patient admitted for chest pain with hypertensive urgency. Discharge Providers Provider Date of admission: 03/09/22 00:57 Discharge Date: 03/10/22 Primary care physician: Bridger Obrien MD Consults: 03/09/22 01:10 Consult to Dietitian, Adult Routine Comment: Reason For Exam: BMI 37.6, DM, HTN,HLD Discharge provider: Jorge Lopez DO Summary Hospital Course Discharge Diagnosis: 1. Chest Pain, acute, present on admission 2. Hypertensive urgency in the setting essential hypertension, acute on chronic, present on admission 3. Hyperlipidemia secondary to enn-zjcsgei-dklsgccbz type 2 diabetes, uncontrolled hyperglycemia, acute on chronic, present on admission 4. Hypothyroidism, acquired, chronic, present on admission 5. GERD, chronic, present on admission 6. Anemia, chronic, iron deficiency, present on admission 7. Obesity as evidence by BMI of 37.6, acute on chronic, present on admission Hospital Course: This is a 56-year-old female the past medical history hypertension, hyperlipidemia, type 2 diabetes, hypothyroidism, GERD, and a prior iron deficiency anemia who was admitted for further evaluation of chest pain. Patient was recommended for nuclear stress testing despite a normal evaluation 10 months ago per Cardiology given her presentation and risk factors. She was also markedly hypertensive initially but improved with minimal antihypertensive medications and pain control. Her echocardiogram showed a normal ejection fraction and no significant valvular pathology or wall motion abnormalities. Her nuclear stress testing was normal, and following this result the patient was discharged home. Her blood pressure was much better on 10 mg of oral lisinopril, and this was prescribed to her as an outpatient. Continue follow-up with her primary care provider for her antihypertensive medications with possible further adjustment as an outpatient. No other changes to her home medications are recommended at this time. Exam Vital Signs (past 8 hours): - 03/10/22 10:26 03/10/22 14:05 03/10/22 13:55 Temperature 96.9 F L Pulse Rate 80 Respiratory Rate 16 Blood Pressure 141/70 H Pulse Oximetry 98 98 94 Oxygen Delivery Method Room Air Room Air Oxygen Flow Rate 0 Oxygen Delivery Method Room Air Oxygen Flow Rate 0 Narrative Exam Narrative: General:? Patient is well developed and well nourished, in no distress at this time. Chest:? Normal AP diameter and contour without kyphoscoliosis, no tachypnea, equal chest rise bilaterally. Lungs:? CTA b/l no wheezing rhonchi or rales. Cardio:?RRR no m/r/g. Musculoskeletal:? Muscle strength and tone are equal within normal limits, no deformity. Extremities: No edema or joint effusions. No cyanosis or clubbing. Neuro:? Alert and orientated x3,? sensation to touch intact in all extremities, no gross deficits noted of cranial nerves. Psych:? Patient has a well-kept appearance, appropriate affect, mental status attitude thought context and judgment are appropriate for age. Objective Labs Result Diagrams: 03/08/22 18:50 03/08/22 18:50 [facility] Medical History Depression (~1989) Essential hypertension GERD (gastroesophageal reflux disease) (~1994) Hyperlipidemia associated with type 2 diabetes mellitus Hypothyroidism (~1994) IBS (irritable bowel syndrome) Rosacea Type 2 diabetes mellitus Surgical History Status post endometrial ablation (~2010) Status post tonsillectomy and adenoidectomy (1983) Family History Father Age: 79 CAD (coronary artery disease) High cholesterol S/P CABG (coronary artery bypass graft) Grandfather CAD (coronary artery disease) CVA (cerebral vascular accident) Grandmother Age: 95 CAD (coronary artery disease) Hypertension Malignant neoplasm of uterus, unspecified site Grandfather Age: 77 CAD (coronary artery disease) Hypertension High cholesterol Grandmother Age: 101 Essential hypertension High cholesterol Social History household members: spouse and children Smoking Status: Never smoker alcohol intake: former substance use type: does not use Discharge Plan Discharge Plan Patient Disposition: Home Provider Discharge Comment: You were admitted to the hospital with chest pain and elevated BP. Your BP improved with a small dose of oral medication, which I recommend you continue. Your echocardiogram was normal, as was stress testing. Please follow up with your primary care provider within the next month for further BP management, if you could take a BP measurement daily at approximately the same time this could help with adjustments that may be needed. Discharge orders & Medications Prescriptions: New lisinopril 10 mg Tablet 10 mg PO DAILY 30 Days Qty: 30 0RF Continued fluocinolone 0.025 % cream 1 applic TOP BID Qty: 15 1RF glipizide 10 mg tablet extended release 24 hr 10 mg PO DAILY Qty: 90 1RF levothyroxine 100 mcg tablet 100 mcg PO DAILY Qty: 90 1RF metformin 1,000 mg tablet 1,000 mg PO BID Qty: 180 0RF Rx Instructions: with meals atorvastatin [Lipitor] 20 mg tablet 20 mg PO HS Qty: 90 1RF aspirin [Adult Low Dose Aspirin] 81 mg tablet,delayed release (DR/EC) 81 mg PO DAILY famotidine 20 mg tablet 20 mg PO BEDTIME Follow up/Referrals: Bridger Obrien MD [Primary Care Provider] - Diet/Activity/Treatments Diet: Diet as Tolerated Activity: As tolerated Visit Report/Discharge Packet Instructions: Recommendations to Help Prevent High Blood Pressure, High Blood Pressure, DI for Cardiac Stress Test, DI for Chest Pain, Lisinopril Discharge Data Primary Care Provider: Bridger Obrien Attending Provider: Maddison Guillory
--- NOTE | 2022-03-10 17:11 | PC.NURSE ---
Day shift: Paperwork singed and all questions answered. Pt has all personal belongings. script sent to Pt's pharmacy electronic. Left unit at approx 1715. She wanted to ambulate to her ride. Her Son is driving her home. She remains free from any chest pain.
== END 2022-03-10 17:13 | disposition home or self-care (01) ==
LOC: ED 03-09 00:56 → AC 03-09 00:57
PROVIDERS: Admitting Provider Nurse Practitioner Family; Emergency Provider Emergency Medicine; PCP Student in an Organized Health Care Education/Training Program; Visit Provider Nurse Practitioner Family
DX: R07.9 Chest pain, unspecified (principal); Z79.84 Long term (current) use of oral hypoglycemic drugs; I16.0 Hypertensive urgency; E66.9 Obesity, unspecified; Z68.37 Body mass index [BMI] 37.0-37.9, adult; D50.9 Iron deficiency anemia, unspecified; K21.9 Gastro-esophageal reflux disease without esophagitis; E03.9 Hypothyroidism, unspecified; E11.65 Type 2 diabetes mellitus with hyperglycemia; E78.5 Hyperlipidemia, unspecified; Z20.822 Contact with and (suspected) exposure to COVID-19
CPT/HCPCS: 36415; 71045; 78452; 80053; 80061; 82550; 82962; 83036; 83690; 83735; 83880; 84443; 84484; 85025; 85610; 87635; 93005; 93010; 93017; 93306; 96372; 99284; C9803; G0378; A9270; A9502; J1650; J1815

== ENCOUNTER → 2022-09-02 09:49 | Outpatient (CLI) | payer BC, SELFPAY ==
[2022-03-09 02:00] VITALS: BMI 37.5
[2022-09-02 11:06] LABS: Hemoglobin A1C% w Est Avg Glu 8.7 % (4.0-6.0)
[2022-09-02 11:20] LABS: BUN Creatinine Ratio 25.9 (6-22); Blood Urea Nitrogen 14 mg/dL (7-17); Calcium 9.3 mg/dL (8.4-10.2); Carbon Dioxide 27 mmol/L (22-32); Chloride 100 mmol/L (98-107); Estimated Glomerular Filt Rate > 60 mL/min (>60); Glucose 251 mg/dL (70-100); HEMOLYSIS < 15 (0-50); Potassium 4.8 mmol/L (3.4-5.1); Sodium 137 mmol/L (137-145)
[2022-09-02 11:22] LABS: Hematocrit 38.4 % (36-46); Hemoglobin 12.7 g/dL (12.0-16.0); Mean Corpuscular HGB Conc 33.1 % (30-36); Mean Corpuscular Hemoglobin 27.9 PG (26-34); Mean Corpuscular Volume 84.2 fL (80-100); Platelet Count 217 X10^3/uL (150-400); Red Blood Cell Count 4.56 X10^6/uL (4.0-5.2); White Blood Cell Count 4.3 X10^3/uL (4.5-11.0)
[2022-09-02 11:28] LABS: HEMOLYSIS < 15 (0-50); Iron 69 ug/dL (37-170)
[2022-09-02 11:40] LABS: Percent Iron Saturation 20 % (15-50); Total Iron Binding Capacity 347 ug/dL (265-497)
[2022-09-02 11:41] LABS: Transferrin 266 mg/dL (206-381)
[2022-09-02 11:50] LABS: Ferritin 13 ng/mL (11-264)
== END ==
PROVIDERS: PCP Student in an Organized Health Care Education/Training Program; Referring Provider Student in an Organized Health Care Education/Training Program; Visit Provider Student in an Organized Health Care Education/Training Program
DX: E11.9 Type 2 diabetes mellitus without complications (principal); E61.1 Iron deficiency
CPT/HCPCS: 36415; 80048; 82728; 83036; 83540; 83550; 85027

== ENCOUNTER → 2022-09-04 08:43 | Outpatient (CLI) | payer BC, SELFPAY ==
[2022-03-09 02:00] VITALS: BMI 37.5
--- NOTE | 2022-09-04 | DI.MG.S_ITS ---
BILATERAL DIGITAL SCREENING MAMMOGRAM 3D/2D WITH CAD: 09/04/2022 CLINICAL: Routine screening. Comparison is made to exams dated: 08/15/2021 mammogram, 08/09/2020 mammogram, 07/28/2019 mammogram, 05/17/2018 mammogram, and 05/07/2017 mammogram - [facility]. Both breasts are almost entirely fatty (category a/<25% glandular tissue). Current study was also evaluated with a Computer Aided Detection (CAD) system. No significant masses, calcifications, or other findings are seen in either breast. There has been no significant interval change. IMPRESSION: NEGATIVE There is no mammographic evidence of malignancy. A 1 year screening mammogram is recommended. Based on the Tyrer Cuzick model (a risk assessment model) the patient's lifetime risk is 6.3% and her 10 year risk is 1.8%. According to the ACR, ACS, and NCCN guidelines, an annual breast MRI exam along with mammogram is recommended if the patient's lifetime risk is 20% or greater. This exam was interpreted at Station ID: [id number]. NOTE: For mammograms, a report in lay terms will be sent to the patient. Approximately 15% of breast malignancies will not be visualized mammographically. In the management of a palpable breast mass, a negative mammogram must not discourage biopsy of a clinically suspicious lesion. Electronically Signed By: Gordon gomez/shawn:09/04/2022 09:27:17 letter sent: Normal Exam ACR BI-RADS Category 1: Negative 3341F
== END ==
PROVIDERS: PCP Student in an Organized Health Care Education/Training Program; Referring Provider Student in an Organized Health Care Education/Training Program; Visit Provider Student in an Organized Health Care Education/Training Program
DX: Z12.31 Encounter for screening mammogram for malignant neoplasm of breast (principal)
CPT/HCPCS: 77063; 77067

== ENCOUNTER → 2023-05-31 11:50 | Outpatient (CLI) | payer BC, SELFPAY ==
[2022-03-09 02:00] VITALS: BMI 37.5
== END ==
PROVIDERS: PCP Family Medicine; Visit Provider Nurse Practitioner Family
DX: J02.9 Acute pharyngitis, unspecified (principal)
CPT/HCPCS: 87070

== ENCOUNTER → 2023-06-11 07:03 | Outpatient (CLI) | payer BC, SELFPAY ==
[2022-03-09 02:00] VITALS: BMI 37.5
[2023-06-11 08:21] LABS: Hemoglobin A1C% w Est Avg Glu 8.8 % (4.0-6.0)
[2023-06-11 08:26] LABS: Blood Urea Nitrogen 14 mg/dL (7-17); Calcium 9.6 mg/dL (8.4-10.2); Carbon Dioxide 27 mmol/L (22-32); Chloride 104 mmol/L (98-107); Cholesterol 131 mg/dL (140-199); Estimated Glomerular Filt Rate > 60 mL/min (>60); Glucose 129 mg/dL (70-100); HDL Cholesterol 37 mg/dL (40-60); HEMOLYSIS < 15 (0-50); LDL Cholesterol Calculated 65 mg/dL (<100); Potassium 4.8 mmol/L (3.4-5.1); Sodium 138 mmol/L (137-145); Triglycerides 146 mg/dL (35-150)
[2023-06-11 08:58] LABS: TSH w/ Reflex to FT4 0.59 uIU/mL (0.47-4.68)
[2023-06-11 17:31] LABS: HIV 1 & 2 Ab/Ag 4th Gen Combo NEGATIVE (NEGATIVE); Hep C Virus Ab w/Reflex Quant NEGATIVE s/c (NEGATIVE)
== END ==
PROVIDERS: PCP Family Medicine; Referring Provider Family Medicine; Visit Provider Family Medicine
DX: Z11.4 Encounter for screening for human immunodeficiency virus [HIV] (principal); Z11.59 Encounter for screening for other viral diseases; E11.65 Type 2 diabetes mellitus with hyperglycemia; E03.9 Hypothyroidism, unspecified; E66.9 Obesity, unspecified; I10 Essential (primary) hypertension; E78.5 Hyperlipidemia, unspecified
CPT/HCPCS: 36415; 80048; 80061; 83036; 84443; 86803; 87389

== ENCOUNTER → 2023-08-27 08:08 | Outpatient (CLI) | payer BC, SELFPAY ==
[2022-03-09 02:00] VITALS: BMI 37.5
[2023-08-27 09:34] LABS: Alanine Aminotransferase 30 IU/L (<35); Albumin 4.1 g/dL (3.5-5.0); Albumin Globulin Ratio 1.6 (1.0-2.8); Alkaline Phosphatase 78 U/L (38-126); Aspartate Aminotransferase 29 IU/L (14-36); Bilirubin Total 0.5 mg/dL (0.2-1.3); Blood Urea Nitrogen 13 mg/dL (7-17); Calcium 9.6 mg/dL (8.4-10.2); Carbon Dioxide 30 mmol/L (22-32); Chloride 103 mmol/L (98-107); Estimated Glomerular Filt Rate > 60 mL/min (>60); Globulin 2.6 g/dL (1.7-4.1); Glucose 101 mg/dL (70-100); HEMOLYSIS < 15 (0-50); Potassium 4.9 mmol/L (3.4-5.1); Sodium 139 mmol/L (137-145); Total Protein 6.7 g/dL (6.3-8.2)
== END ==
PROVIDERS: PCP Family Medicine; Referring Provider Family Medicine; Visit Provider Family Medicine
DX: E11.65 Type 2 diabetes mellitus with hyperglycemia (principal); E11.9 Type 2 diabetes mellitus without complications; E03.9 Hypothyroidism, unspecified; I10 Essential (primary) hypertension
CPT/HCPCS: 36415; 80053; 83036

== ENCOUNTER → 2023-09-17 11:50 | Outpatient (CLI) | payer BC, SELFPAY ==
[2022-03-09 02:00] VITALS: BMI 37.5
--- NOTE | 2023-09-17 11:51 | DI.MG.S_ITS ---
BILATERAL DIGITAL SCREENING MAMMOGRAM 3D/2D WITH CAD: 09/17/2023 CLINICAL: Routine screening. Comparison is made to exams dated: 09/04/2022 mammogram, 08/15/2021 mammogram, and 08/09/2020 mammogram - [facility]. Both breasts are almost entirely fatty (category a/<25% glandular tissue). Current study was also evaluated with a Computer Aided Detection (CAD) system. No significant masses, calcifications, or other findings are seen in either breast. There has been no significant interval change. IMPRESSION: NEGATIVE There is no mammographic evidence of malignancy. A 1 year screening mammogram is recommended. Based on the Tyrer Cuzick model (a risk assessment model) the patient's lifetime risk is 6.2% and her 10 year risk is 2.0%. According to the ACR, ACS, and NCCN guidelines, an annual breast MRI exam along with mammogram is recommended if the patient's lifetime risk is 20% or greater. This exam was interpreted at Station ID: [id number]. NOTE: For mammograms, a report in lay terms will be sent to the patient. Approximately 15% of breast malignancies will not be visualized mammographically. In the management of a palpable breast mass, a negative mammogram must not discourage biopsy of a clinically suspicious lesion. Electronically Signed By: Gordon gomez/shawn:09/17/2023 17:43:53 letter sent: Normal Exam ACR BI-RADS Category 1: Negative 3341F
== END ==
LOC: MAMMO 11:51
PROVIDERS: PCP Family Medicine; Referring Provider Family Medicine; Visit Provider Family Medicine
DX: Z12.31 Encounter for screening mammogram for malignant neoplasm of breast (principal)
CPT/HCPCS: 77063; 77067

== ENCOUNTER → 2023-12-25 06:45 | Outpatient (CLI) | payer BC, SELFPAY ==
[2022-03-09 02:00] VITALS: BMI 37.5
[2023-12-25 08:16] LABS: Add Manual Diff / Slide Review NO; Basophils Absolute Auto 0 /uL (0-100); Basophils Percent Auto 0.6 % (0-2); Eosinophils Absolute Auto 200 /uL (0-450); Hematocrit 29.9 % (36-46); Hemoglobin 9.9 g/dL (12.0-16.0); Lymphocytes Absolute Auto 1500 /uL (1100-4500); Lymphocytes Percent Auto 29.8 % (25-40); Mean Corpuscular HGB Conc 33.2 % (30-36); Mean Corpuscular Volume 78.4 fL (80-100); Monocytes Absolute Auto 500 /uL (0-900); Monocytes Percent Auto 8.9 % (3-14); Neutrophils Absolute Auto 3000 /uL (1500-7000); Neutrophils Percent Auto 57.7 % (50-75); Platelet Count 267 X10^3/uL (150-400); Red Blood Cell Count 3.81 X10^6/uL (4.0-5.2); Red Cell Distribution Width 17.3 % (11.6-14.8); White Blood Cell Count 5.2 X10^3/uL (4.5-11.0)
[2023-12-25 08:30] LABS: Blood Urea Nitrogen 16 mg/dL (7-17); Carbon Dioxide 28 mmol/L (22-32); Chloride 106 mmol/L (98-107); Estimated Glomerular Filt Rate > 60 mL/min (>60); Glucose 191 mg/dL (70-100); HEMOLYSIS < 15 (0-50); Sodium 140 mmol/L (137-145)
== END ==
PROVIDERS: PCP Family Medicine; Referring Provider Orthopaedic Surgery Foot and Ankle Surgery; Visit Provider Orthopaedic Surgery Foot and Ankle Surgery
DX: Z01.812 Encounter for preprocedural laboratory examination (principal)
CPT/HCPCS: 36415; 80048; 85025

== ENCOUNTER → 2024-02-27 12:32 | Outpatient (CLI) | payer BC, SELFPAY ==
[2022-03-09 02:00] VITALS: BMI 37.5
--- NOTE | 2024-02-27 12:33 | DI.MRI.S_ITS ---
PROCEDURE: MR KNEE LT WO CON INDICATIONS: RUPTURE OF LEFT QUADRICEPS TENDON AFTER SURGERY TECHNIQUE: Noncontrast sagittal PD fast spin echo and T2 fast spin echo with fat saturation, sagittal 3-D FLASH with fat saturation; coronal T1 spin echo and PD fast spin echo with fat saturation, and axial PD fast spin echo with fat saturation through the knee. COMPARISON: [facility] [place], CR, XR KNEE 4+ VIEWS LEFT, 02/25/2024, 10:32. FINDINGS: Image quality: Excellent. Menisci: Patient is status post left total knee arthroplasty. Cruciate ligaments: The anterior and posterior cruciate ligaments are not well visualized due to significant susceptibility artifacts from surgical hardware. No abnormal anterior tibial translation is noted. Medial structures: The medial collateral ligament is grossly intact. Visualized portions of the pes anserinus tendons appear normal. No abnormal bursal fluid. Lateral structures: The lateral collateral ligament, long and short heads of the biceps femoris tendon appear thickened. The popliteus tendon appears thickened. Iliotibial band appears normal. Anterior structures: There is full-thickness rupture involving distal quadriceps tendon approximately 3.3 cm from its insertion on superior patella with proximal retraction of torn tendon fibers and a fluid-filled gap measures 1 cm in craniocaudal dimension and 2.4 cm in transverse dimension. The patellar tendon is intact. Patellar alignment is normal. Bones and cartilage: Diffuse soft tissue swelling and edema surrounding left knee is noted. Susceptibility artifacts are noted in left knee from prior arthroplasty. No definite marrow edema. No displaced fracture. Joint space: There is moderate knee joint fluid. There is a tiny popliteal cyst. Normal appearing synovial plicae are incidentally noted. IMPRESSION: 1. Full-thickness rupture involving quadriceps tendon approximately 3.3 cm from its insertion on superior patella with up to 1 cm proximal retraction of torn tendon fibers and fluid-filled gap measures 2.4 cm in transverse dimension. The patellar tendon is intact. 2. Patient is status post prior low left total knee arthroplasty. Significant susceptibility artifacts are noted limits evaluation of adjacent osseous structures. No definite marrow edema. No acute fracture or dislocation. Marked soft tissue swelling and edema surrounding left knee joint. Moderate joint effusion, no loose bodies. Tiny popliteal cyst. 3. Cruciate ligaments are not well visualized. No abnormal anterior tibial translation. 4. Low-grade MCL sprain. Low to moderate grade LCL sprain. Distal biceps femorals tendinosis. Popliteus tendinosis. Dictated by: Phillip Melissa M.D. on 02/27/2024 at 23:14 Approved by: Phillip Melissa M.D. on 02/27/2024 at 23:19
== END ==
PROVIDERS: PCP Family Medicine; Referring Provider Orthopaedic Surgery Foot and Ankle Surgery; Visit Provider Orthopaedic Surgery Foot and Ankle Surgery
DX: S76.112A Strain of left quadriceps muscle, fascia and tendon, initial encounter (principal); S83.412A Sprain of medial collateral ligament of left knee, initial encounter; S83.422A Sprain of lateral collateral ligament of left knee, initial encounter; M79.89 Other specified soft tissue disorders; M25.462 Effusion, left knee; Z96.652 Presence of left artificial knee joint
CPT/HCPCS: 73721

== ENCOUNTER 2024-03-12 14:00 | Day surgery (SDC) | payer BC, SELFPAY ==
[2022-03-09 02:00] VITALS: BMI 37.5
[2024-03-11 12:45] VITALS: BMI 40.5
[2024-03-12] VITALS (13 sets, daily range): BP systolic 138–185; BP diastolic 69–88; PULSE 70–90; RESP 10–92; TEMP 36.2–36.7; O2SAT 92–97; BMI 37.5
[2024-03-12] MEDS: ACETAMINOPHEN 325 MG TABLET 975 MG PO (14:44)
[2024-03-12] MEDS: LACTATED RINGERS 1,000 ML 42 ML IV ×2 (14:47→17:35)
--- NOTE | 2024-03-12 15:51 | PM.PREOP ---
Pre-operative Note Interval Note History & Physical reviewed/Exam performed by Physician: Yes Changes to H&P: No H&P completed within 30 days and has changed as indicated here:: The H and P from 02/29/2024 is up-to-date and accurate
--- NOTE | 2024-03-12 16:04 | SUR.PREOP ---
Block start time [1551] . Monitoring initiated and maintained throughout procedure. Oxygen and medications given per anesthesiologist instructions. Patient remained stable throughout procedure, no adverse reactions noted. Block end time [1600].
[2024-03-12] MEDS: CEFAZOLIN 2 GM/100 ML PREMIX 100 ML IV (16:10)
--- NOTE | 2024-03-12 16:28 | SUR.OPER ---
Supine on padded OR bed, head on pillow, arms secured on padded arm boards at <90 degrees abduction, legs uncrossed, safety belt at thigh, tape over blanket over lower legs.
[2024-03-12] MEDS: BUPIVACAINE 0.25% (PF) 30 ML, EPINEPHrine 0.15 MG INJ (16:38)
[2024-03-12] MEDS: VANCOMYCIN 1,000 MG VIAL 1000 MG TOP (17:11)
--- NOTE | 2024-03-12 18:43 | PM.OP.1 ---
Operative Date/Time/Diagnoses Date of procedure: 03/12/24 Time of procedure: 16:45 Pre-op diagnosis: Quadriceps tendon rupture left Post-op diagnosis: same Procedure & Clinicians Procedure: Repair quadriceps tendon left primary CPT code 39674 Modifier 79 Same procedure as scheduled: Yes Indications: The patient is a 58-year-old female with a history of a left total knee arthroplasty that fell in the bathroom on 02/25/2024 and sustained a quadriceps tendon rupture. She does not have the ability to extend her knee. This was a closed injury. MRI confirmed the rupture she was indicated for repair. We discussed risks for prolonged weakness, infection rerupture. We discussed risks for permanent extension lag. The risks and benefits of the procedure have been discussed with the patient and given the opportunity to ask questions. The risks of surgery include but are not limited to infection, persistence of pain, damage to nerves and blood vessels, posttraumatic arthritis, DVT, PE, cardiopulmonary complications and . The patient expressed a thorough understanding of the risks and benefits of surgery and has elected to proceed. Consent was signed. Surgeon: Xochitl Suarez Click Yes if Unassisted: Yes Anesthesia Type: General, Peripheral nerve block and Local Operative Notes Findings: Quadriceps tendon rupture proximally 2 cm above distal insertion on the patella. Hematoma evacuated. Closure Type: primary Specimen(s): none sent Prosthetic devices, grafts, tissues, transplants, or devices: Semi tendinous allograft used for reinforcement. Arthrex 4.75 x 15 swivel locks x2 #5. And #2. FiberWire Estimated Blood Loss (mL): 30 Blood products transfused: none Tourniquet time (min): 58 Procedure in detail: The patient was seen in the preoperative area the site of surgery was marked and informed consent confirmed. This was the left leg. Patient had a preoperative nerve block placed by the anesthesia team for postoperative pain control. Patient was brought to the operating room positioned supine on operative table. General anesthetic was administered. A well-padded thigh tourniquet was applied high on the thigh. The left leg was prepped and draped in the standard sterile fashion a formal time-out procedure was performed confirming the patient's side and site of surgery administration of appropriate preoperative antibiotic all were in agreement. Attention turned to the left leg the Esmarch was used for exsanguination the tourniquet was raised on the thigh to 250 mm of mercury. This was elevated for 58 minutes and then became venous and was let down for the remainder of the case. Attention was turned to the left knee. The previous old scar from knee arthroplasty was partially reopened and the incision extended proximally 5 cm proximal this was taken down through the skin and subcutaneous tissue. The scar tissue was mobilized carefully. And the level of the rupture was identified proximally 2 cm proximal to the proximal pole of the patella within the distal quadriceps the rupture was scarred in once this was found scar was excised and old hematoma within the rupture site was removed. Additional careful dissection was taken right at the proximal edge of the patella to identify the bone. It was felt due to the quality of the tendon level of scar that the repair would benefit from the addition of allograft reinforcement therefore the semi tendinosis allograft was thawed. To avoid interference with the patellar button from the prior total knee arthroplasty swivel locks were used in the patella for bony fixation to avoid through drill holes. These were carefully placed to avoid the patellar component and were drilled into the proximal pole of the patella. These were loaded with a 5. And then 2. FiberWire. Next a different 5. Fiber wire was run in a Krackow type stitch through the proximal limb of the quadriceps rupture which had a central split as well so a 5. FiberWire was used as a Krackow stitch on the medial half of the proximal quadriceps and another FiberWire stitch used as a Krackow stitch on the lateral half of the proximal quadriceps. An 0 Vicryl was used to close the central split. Next the 5. FiberWire that was part of the swivel locks and the patella was then run through the 2 cm distal stump of the quadriceps that was left attached to the proximal patellar pole and then this was tied with a Krackow from the proximal portion of the quadriceps with the knee in full extension with excellent tension. Once that Krackow repair was completed the semi tendinous allograft was then laid over in a U shape over the proximal patella and sewn down to the SwiveLock 2. Fiber wires at the proximal patella then the medial and lateral limbs of the semitendinosus allograft were passed through the quadriceps tendon in a Pulvertaft weave fashion using the tendon Passer these were then brought together in the proximal quadriceps above the Krackow repair and sewn to the proximal quadriceps and to each other.. Additional 2. FiberWire and 0 Vicryl was used to over-sew the repair and for retinacular repair. The knee joint proper and knee implant were not exposed during the surgeries as there was minimal retinacular involvement the majority of the tear was proximal to the patella. The repair was tested and there was no gapping in flexion. And there was good tension in extension. Vancomycin was placed deep in the wound for infection prevention. 0 Vicryl and 2-0 Vicryl were used in the deep subcutaneous tissues and a 3-0 Stratafix Monocryl in the skin followed by Dermabond. A few nylon sutures were added for extra reinforcement of the skin incision. 20 cc of 0.25% Marcaine with epinephrine was injected for local anesthesia and an Aquacel dressing was applied. Luis wraps were applied and the patient was placed into a hinged knee brace locked in full extension. The patient was awoken from anesthesia and taken to recovery room in good condition there were no immediate complications from this procedure. All counts were correct. Complications: none Post-operative Condition: stable Disposition: PACU Plan for aftercare: Weightbear as tolerated in brace locked in full extension. May open brace to 30? for sitting in a chair or a car. Walking must use the brace in full extension at all times. Aspirin for DVT prophylaxis. Follow up in Orthopedic Clinic in 2 weeks for wound check. May shower with Aquacel dressing.
[2024-03-12] MEDS: OXYCODONE IR 5 MG TABLET PO ×2 (19:11→19:53)
[2024-03-12] MEDS: HYDROMORPHONE 1 MG INJ IV (19:20)
--- NOTE | 2024-03-12 19:31 | SUR.PHASEI ---
See verified verbal order from Dr Crooks for Toradol IV for pain.
[2024-03-12] MEDS: KETOROLAC 30 MG/ML VIAL IV (19:41)
[2024-03-12] MEDS: ONDANSETRON 4 MG/2 ML INJ IV (19:50)
[2024-03-12] MEDS: METOCLOPRAMIDE 10 MG/2 ML INJ IV (19:59)
== END 2024-03-12 20:30 | disposition home or self-care (01) ==
PROVIDERS: PCP Family Medicine; Referring Provider Orthopaedic Surgery Foot and Ankle Surgery; Visit Provider Orthopaedic Surgery Foot and Ankle Surgery
PROC: (CPT 27385; principal; 2024-03-12 15:45)
DX: S76.112A Strain of left quadriceps muscle, fascia and tendon, initial encounter (principal); M17.12 Unilateral primary osteoarthritis, left knee; G89.18 Other acute postprocedural pain; E66.01 Morbid (severe) obesity due to excess calories; Z68.41 Body mass index [BMI] 40.0-44.9, adult
CPT/HCPCS: 27385; 64450; 82962; J0171; J0690; J1100; J1170; J1885; J2250; J2405; J2704; J2765; J3010

== ENCOUNTER → 2024-04-11 08:04 | Outpatient (CLI) | payer BC, SELFPAY ==
[2022-03-09 02:00] VITALS: BMI 37.5
[2024-04-11 09:22] LABS: Hemoglobin A1C% w Est Avg Glu 7.4 % (4.0-6.0)
== END ==
PROVIDERS: PCP Family Medicine; Referring Provider Family Medicine; Visit Provider Family Medicine
DX: E11.65 Type 2 diabetes mellitus with hyperglycemia (principal)
CPT/HCPCS: 36415; 83036

== ENCOUNTER → 2024-07-18 06:54 | Outpatient (CLI) | payer BC, SELFPAY ==
[2022-03-09 02:00] VITALS: BMI 37.5
[2024-07-18 08:00] LABS: Hemoglobin 10.9 g/dL (12.0-16.0); Mean Corpuscular Hemoglobin 25.3 PG (26-34); Mean Corpuscular Volume 76.9 fL (80-100); Platelet Count 266 X10^3/uL (150-400); Red Blood Cell Count 4.29 X10^6/uL (4.0-5.2); Red Cell Distribution Width 18.5 % (11.6-14.8); White Blood Cell Count 4.1 X10^3/uL (4.5-11.0)
[2024-07-18 08:08] LABS: Hemoglobin A1C% w Est Avg Glu 7.7 % (4.0-6.0)
[2024-07-18 08:15] LABS: BUN Creatinine Ratio 26.3 (6-22); Blood Urea Nitrogen 15 mg/dL (7-17); Calcium 9.4 mg/dL (8.4-10.2); Carbon Dioxide 28 mmol/L (22-32); Chloride 104 mmol/L (98-107); Cholesterol 156 mg/dL (140-199); Estimated Glomerular Filt Rate > 60 mL/min (>60); Glucose 228 mg/dL (70-100); HDL Cholesterol 37 mg/dL (40-60); HEMOLYSIS < 15 (0-50); LDL Cholesterol Calculated 70 mg/dL (<100); Potassium 4.7 mmol/L (3.4-5.1); Sodium 137 mmol/L (137-145); Triglycerides 244 mg/dL (35-150)
[2024-07-18 08:45] LABS: TSH w/ Reflex to FT4 1.98 uIU/mL (0.47-4.68)
== END ==
PROVIDERS: PCP Family Medicine; Referring Provider Family Medicine; Visit Provider Family Medicine
DX: I10 Essential (primary) hypertension (principal); E11.65 Type 2 diabetes mellitus with hyperglycemia; E66.9 Obesity, unspecified; E03.9 Hypothyroidism, unspecified
CPT/HCPCS: 36415; 80048; 80061; 83036; 84443; 85027

== ENCOUNTER → 2024-09-22 09:24 | Outpatient (CLI) | payer BC, SELFPAY ==
[2022-03-09 02:00] VITALS: BMI 37.5
--- NOTE | 2024-09-22 09:24 | DI.MG.S_ITS ---
[address] [address] Patient: JENNIFER CADE. Gender: Female Date of : 1965. Age: 59 MPI: [id number] Acc: [id number] MM screening mammo BI: 09/22/2024. BI-RADS: 1 CLINICAL: 59-year old female for bilateral screening mammogram. Tyrer-Cuzick lifetime risk of 6.4%. No personal or first-degree family history of breast cancer. PRIOR EXAMS: Reviewed previous images from 2023, 2022 and 2021. MAMMOGRAPHY TECHNIQUE: Bilateral CC and MLO tomosynthesis with synthesized views were obtained. Current study was also evaluated with a Computer Aided Detection (CAD) system. DENSITY A. The breasts are almost entirely fatty. MAMMOGRAPHY FINDINGS Bilateral: No suspicious mass, asymmetry, microcalcification, or other abnormality seen. No suspicious change on comparison. CONCLUSION * No evidence of malignancy. RECOMMENDATIONS Bilateral * Annual screening mammography. OVERALL ASSESSMENT CATEGORY BI-RADS-1: Negative. The [employer] recommends annual screening mammography beginning at age 40 for women with average risk of breast cancer. ELECTRONICALLY SIGNED: Shaan Og M.D. on 09/23/2024 at 02:30:40 PM Interpreting Station ID: [id number]
== END ==
LOC: MAMMO 09:24
PROVIDERS: PCP Family Medicine; Referring Provider Family Medicine; Visit Provider Family Medicine
DX: Z12.31 Encounter for screening mammogram for malignant neoplasm of breast (principal); R92.313 Mammographic fatty tissue density, bilateral breasts
CPT/HCPCS: 77063; 77067

== ENCOUNTER → 2024-10-17 07:21 | Outpatient (CLI) | payer BC, SELFPAY ==
[2022-03-09 02:00] VITALS: BMI 37.5
[2024-10-17 09:18] LABS: Hematocrit 38.8 % (36-46); Mean Corpuscular HGB Conc 33.5 % (30-36); Mean Corpuscular Hemoglobin 27.5 PG (26-34); Platelet Count 225 X10^3/uL (150-400); Red Blood Cell Count 4.74 X10^6/uL (4.0-5.2); Red Cell Distribution Width 18.2 % (11.6-14.8); White Blood Cell Count 4.3 X10^3/uL (4.5-11.0)
[2024-10-17 10:32] LABS: Ferritin 13 ng/mL (11-264)
[2024-10-17 12:50] LABS: Hemoglobin A1C% w Est Avg Glu 6.7 % (4.0-6.0)
== END ==
PROVIDERS: PCP Family Medicine; Referring Provider Family Medicine; Visit Provider Family Medicine
DX: D50.9 Iron deficiency anemia, unspecified (principal); E11.65 Type 2 diabetes mellitus with hyperglycemia
CPT/HCPCS: 36415; 82728; 83036; 85027

== ENCOUNTER → 2024-11-15 08:09 | Outpatient (CLI) | payer BC, SELFPAY ==
[2022-03-09 02:00] VITALS: BMI 37.5
[2024-11-15 08:56] LABS: Influenza A - CEPHEID Flu A NEGATIVE (NEGATIVE); Influenza B - CEPHEID Flu B NEGATIVE (NEGATIVE); Respiratory Syncytial Virus Negative (Negative)
[2024-11-15 09:17] LABS: COVID-19 CEPHEID 4-PLEX PCR Negative (Negative)
== END ==
PROVIDERS: PCP Family Medicine; Visit Provider Physician Assistant Surgical
DX: J02.9 Acute pharyngitis, unspecified (principal); R05.1 Acute cough
CPT/HCPCS: 0241U; 87070

== ENCOUNTER 2025-01-12 08:54 | Day surgery (SDC) | payer BC, SELFPAY ==
[2022-03-09 02:00] VITALS: BMI 37.5
[2024-12-31 13:01] VITALS: BMI 36.8
[2025-01-12] VITALS (12 sets, daily range): BP systolic 119–158; BP diastolic 44–80; PULSE 64–81; RESP 12–19; TEMP 35.3–36.6; O2SAT 92–100; BMI 36.8
[2025-01-12] MEDS: FAMOTIDINE 20 MG/2 ML VIAL IV (09:23)
[2025-01-12] MEDS: SCOPOLAMINE 1 PATCH TOP (09:23)
[2025-01-12] MEDS: LACTATED RINGERS 1,000 ML 21 ML IV ×2 (09:23→11:32)
--- NOTE | 2025-01-12 10:05 | PM.PREOP ---
Pre-operative Note Interval Note History & Physical reviewed/Exam performed by Physician: Yes Changes to H&P: No H&P completed within 30 days and has changed as indicated here:: 12/24/24
[2025-01-12] MEDS: CEFAZOLIN 2 GM/100 ML PREMIX 100 ML IV (10:26)
--- NOTE | 2025-01-12 10:45 | SUR.OPER ---
Lithotomy on padded OR bed, head on pillow, arms secured on padded arm boards at <90 degrees abduction. Legs secured in padded yellow fins stirrups. Safety strap to upper body.
[2025-01-12] MEDS: BUPIVACAINE 0.25% W/ EPI 30 ML VIAL INJ (10:59)
[2025-01-12] MEDS: ACETAMINOPHEN IV 1,000 MG/100 ML VIAL 400 MG IV (11:03)
--- NOTE | 2025-01-12 12:30 | PM.GYNOP.1 ---
Operative Date/Time/Diagnoses Date of procedure: 01/12/25 Time of procedure: 12:30 Pre-op diagnosis: 59 year old with a symptomatic cystocele and rectocele Post-op diagnosis: same Procedure & Clinicians Procedure: Procedures Operation Date: 01/12/25 10:15 Actual Procedure Side Surgeon p Anterior/Posterior Repair Lexis Valenzuela MD Indications: 59-year-old 3 para 2 with a symptomatic cystocele and rectocele Surgeon: Lexis Valenzuela Skiving Machine Operator: Sena Aleman Anesthesia Type: General and Local Operative Notes Findings: 3rd degree cystocele 3rd degree rectocele Enterocele Closure Type: primary Specimen(s): none Applied: catheter (to continuous drainage) and other (vaginal packing in place) Estimated blood loss (mL): 75 Blood products transfused: none Procedure in detail: Two Allis clamps were placed at the apex of the cystocele. 6 mL of half percent Marcaine with epinephrine were injected and an incision was made with a #10 blade between the 2 Allis clamps. Wide Allis clamps were placed on the midline of the cystocele approximately 5. The mucosa was undermined using the Metzenbaum scissors and the mucosa incised in the midline moving the wide Allis clamps to the edges of the mucosa. The mucosa was dissected off the underlying fascia using an open moistened Ray-Francisco and a #10 blade. The fascia was reapproximated with 0 Vicryl with a series of horizontal mattress sutures. The excess vaginal mucosa was excised. The mucosa was closed using simple interrupted sutures with 2-0 Vicryl including the underlying fascia to close the space. The weighted speculum was removed from the vagina. Allis clamps were placed at the mucocutaneous junction at the introitus. 6 mL of half percent Marcaine with epinephrine were injected. An incision was made with a #10 blade between the 2 Allis clamps, and a triangular piece of skin and underlying subcutaneous tissue was removed. Allis clamps were placed in the midline of the rectocele. 10 mL of half percent Marcaine with epinephrine were injected submucosally. The mucosa was undermined using the Metzenbaum scissors and the mucosa incised in the midline, moving the wide Allis clamps to the mucosal edges. The underlying fascia was dissected off of th mucosa using an open moistened Ray-Francisco and a #10 blade. An enterocele was encountered. A pursestring suture was placed around the enterocele sac and it was reduced. The fascia was reapproximated using 0 Vicryl with a series of horizontal mattress sutures. The excess vaginal mucosa was excised. The mucosa was closed using a series of simple interrupted sutures with 2-0 Vicryl including the underlying fascia to close the space. On the perineum 0 Vicryl was used to reapproximate the levator muscle. The subcutaneous layer was closed with 2-0 Vicryl. The skin was closed with 2-0 chromic with simple interrupted sutures. Hemostasis was achieved. A Betadine moistened vaginal pack was placed into the vagina. A rectal exam was done and there were no sutures palpable in the rectum. The urine was clear. Sponge, lap, and instrument counts were correct x-2. The patient tolerated the procedure well, was taken to PACU in stable condition. Complications: none Post-operative Condition: stable Disposition: PACU Plan for aftercare: To Acute Care after recovery
--- NOTE | 2025-01-12 12:59 | SUR.PHASEI ---
Report called to Keely Martines
[2025-01-12] MEDS: LACTATED RINGERS 1,000 ML 75 ML IV (14:44)
[2025-01-12] MEDS: INSULIN LISPRO 100 UNIT/ML 3ML VIAL SUBCUT ×2 (16:59→20:13)
[2025-01-12] MEDS: ACETAMINOPHEN 325 MG TABLET 650 MG PO ×2 (17:00→23:16)
[2025-01-12] MEDS: KETOROLAC 30 MG/ML VIAL IV ×2 (17:58→23:16)
[2025-01-12] MEDS: ATORVASTATIN 20 MG TABLET PO (20:13)
[2025-01-12] MEDS: METFORMIN HCL 500 MG TABLET 1000 MG PO (20:13)
[2025-01-13 00:57] VITALS: BP 129/58; PULSE 70; RESP 16; O2SAT 94
[2025-01-13] MEDS: LACTATED RINGERS 1,000 ML 75 ML IV (03:14)
[2025-01-13] MEDS: PANTOPRAZOLE DR 20 MG TABLET PO (05:32)
[2025-01-13] MEDS: KETOROLAC 30 MG/ML VIAL IV (05:32)
[2025-01-13] MEDS: LEVOTHYROXINE 100 MCG TABLET PO (05:32)
[2025-01-13] MEDS: ACETAMINOPHEN 325 MG TABLET 650 MG PO ×2 (05:32→11:19)
[2025-01-13 06:02] LABS: Add Manual Diff / Slide Review NO; Basophils Absolute Auto 0 /uL (0-100); Basophils Percent Auto 0.1 % (0-2); Eosinophils Absolute Auto 0 /uL (0-450); Eosinophils Percent Auto 0.1 % (2-4); Hematocrit 35.4 % (36-46); Hemoglobin 12.1 g/dL (12.0-16.0); Lymphocytes Absolute Auto 1200 /uL (1100-4500); Lymphocytes Percent Auto 10.3 % (25-40); Mean Corpuscular HGB Conc 34.2 % (30-36); Mean Corpuscular Hemoglobin 29.9 PG (26-34); Mean Corpuscular Volume 87.4 fL (80-100); Monocytes Absolute Auto 800 /uL (0-900); Monocytes Percent Auto 6.6 % (3-14); Neutrophils Absolute Auto 9600 /uL (1500-7000); Neutrophils Percent Auto 82.9 % (50-75); Platelet Count 191 X10^3/uL (150-400); Red Blood Cell Count 4.05 X10^6/uL (4.0-5.2); Red Cell Distribution Width 15.3 % (11.6-14.8); White Blood Cell Count 11.6 X10^3/uL (4.5-11.0)
--- NOTE | 2025-01-13 06:32 | PC.NURSE ---
night shift manager: Patient is AxOx4, VSS. Denies pain, N/V, SOB, or dizziness. Scheduled pain medications given as ordered. Hua in place overnight, draining clear/yellow urine. IVF infused as ordered. Performed void trial @ 0600 this morning. Ensured bladder was empty, instilled 300cc sterile water via gravity, removed hua & vaginal packing. Patient immediately got up to BSC and voided 300cc clear, yellow/pink urine. PVR: 0. Patient ambulating independently in room w/o dizziness or weakness. Oriented to call-light, plan of care ongoing.
[2025-01-13 08:42] VITALS: BP 134/64
[2025-01-13] MEDS: lisinopriL 10 MG TABLET PO (08:42)
[2025-01-13] MEDS: SENNOSIDES 8.6 MG TABLET PO (08:42)
[2025-01-13] MEDS: METFORMIN HCL 500 MG TABLET 1000 MG PO (08:43)
--- NOTE | 2025-01-13 09:37 | CM.DANOTE ---
B DCP Assessment Note pt is a 59yo F POD1 posterior/anterior repair with Dr. Valenzuela. PCP [employer] Payer out of state [facility]. SUMMER LAW CLERK reviewed EMR. per chart, pt lives indep with spouse in [place]. no DME. per RN note, pt ambulating indep in room, and voided. anticipate dc today per chart review, no identified barriers to safe dc home at this time. Anticipate home today with spouse and OP f/u. CM team will continue to follow as needed in case any DCP needs should arise. RYAN Ontiveros Discharge Planning/Care Management Advanced directive, confirm from FAMILY Start: 01/12/25 13:41 Freq: Q24H Status: Active Protocol: Document 01/12/25 13:41 SB (Rec: 01/12/25 13:52 SB [id number]) Advance Directive, confirm on record Time 13:52 Person contacted patient Copy received No CM Discharge Assessment Start: 01/12/25 13:32 Freq: Status: Active Protocol: Document 01/13/25 09:37 SL (Rec: 01/13/25 09:37 SL Desktop) Discharge Planning Assessment Assigned Discharge RYAN Flanagan Human Factors Advisor Lead DPOA/Assigned adithya Acevedo Designee Name Contact Information [phone] Advance Directives? Yes Advance Directives No on File History Provided By Patient Prior Living House Arrangements Household Members spouse,children Type of Drives own vehicle transporation used prior to admit Independent with ADL Yes 's Is patient alert and Yes oriented? Discharge Plan Home Transportation POV Arrangement Referrals Initiated None needed Review Status In Process Please Provide Date 01/13/25 Initial DC Assessment Was Performed Next Review Type Continued Stay Review Pre-Anesthesia Assessment Start: 12/31/24 13:00 Freq: Status: Active Protocol: Document 12/31/24 13:01 CAB (Rec: 12/31/24 13:27 CAB [id number]) Pre-Anesthesia Assessment PAC Comment Chart review 12/31/24 Patient Information Chart Review Reviewed Via Primary Care Nehal Cleaning Provider Seen Specialist in Yes Last 12 Months Specialist Seen Material Handling Crew Supervisor Primary Language Somali Preferred Language Somali Concrete Swimming Pool Installer Required No Height 170.18 cm Weight 106.594 kg Body Mass Index (BMI 36.8 ) Hearing Ability Hearing Impaired,Use of Hearing Aid Visual Assist Contacts,Glasses Hx Anesthesia No Reactions Hx Family Anesthesia No Reaction Hx Malignant No Hyperthermia Hx Blood No Transfusions Hx Blood Transfusion No Reaction Air Sampler No alcohol intake never Smoking Status Never smoker Substance Use Type [ does not use #R] Pain Present Pain Reported Comment Right knee-arthritis Musculoskeletal Joint Pain Symptoms Patient is No completely paralyzed or completely immobile Mental Status Oriented to own ability Is patient on oxygen No ? Hx Sleep Apnea No CPAP/BIPAP use not prescribed Currently Taking a No Beta Festus Anti-Coagulant No Therapy Cardiac Testing No Hx Pacemaker/ICD No Pacemaker Rep No Required? Cardiac Clearance No Received Urinary Catheter No Present Hx Urinary Self No Catheterization Diabetes Yes HgbA1C 6.7 Date 10/17/24 Comment 6.7 10/17/24 Patient No Lactating No Presence of External Yes: left knee , bridge and fillings or Internal Medical Devices Month and year 05/14 received flu vaccine Received a COVID Yes vaccine? Marital Status Lives With spouse,children Patient Discharge Return Home Plan Description Do You Have Any No Spiritual Beliefs That May Affect Your HC Choices? Do You Have Any No Cultural Practices That May Affect Your HC Choices? Emergency Contact Curtis Guajardo Name Emergency Contact [phone] Phone Number Advance Directives? No Power of Bobbin Stripper Yes Power of Bobbin Stripper Curtis Guajardo Name
[2025-01-13 10:21] VITALS: BP 134/62; PULSE 68; RESP 16; TEMP 36.4; O2SAT 99
[2025-01-13 11:52] LABS: POC Glucose 110 mg/dL (70-99)
== END 2025-01-13 11:55 | disposition home or self-care (01) ==
LOC: OR 08:55 → AC 13:18
PROVIDERS: PCP Family Medicine; Referring Provider Obstetrics & Gynecology; Visit Provider Obstetrics & Gynecology
PROC: (CPT 57265; principal; 2025-01-12 10:15)
DX: N81.10 Cystocele, unspecified (principal); N81.6 Rectocele; N81.5 Vaginal enterocele
CPT/HCPCS: 57265; 36415; 82962; 85025; J0131; J0690; J1100; J1815; J1885; J2250; J2405; J2704; J3010; J3475; J3490

== ENCOUNTER → 2025-01-19 06:49 | Outpatient (CLI) | payer BC, SELFPAY ==
[2025-01-12 13:32] VITALS: BMI 36.8
[2025-01-19 07:36] LABS: Hemoglobin A1C% w Est Avg Glu 6.4 % (4.0-6.0)
[2025-01-19 07:53] LABS: Cholesterol 154 mg/dL (140-199); HDL Cholesterol 37 mg/dL (40-60); LDL Cholesterol Calculated 72 mg/dL (<100); Triglycerides 223 mg/dL (35-150)
== END ==
PROVIDERS: PCP Family Medicine; Referring Provider Family Medicine; Visit Provider Family Medicine
DX: I10 Essential (primary) hypertension (principal); E11.65 Type 2 diabetes mellitus with hyperglycemia; E66.9 Obesity, unspecified
CPT/HCPCS: 36415; 80061; 83036

== ENCOUNTER → 2025-02-19 13:04 | Outpatient (CLI) | payer BC, SELFPAY ==
[2025-01-12 13:32] VITALS: BMI 36.8
--- NOTE | 2025-02-19 16:19 | DIET.OUTPTC ---
Dietary Outpatient Consult Consult Date:02/19/25 Assessment:? 59 y F referred to dietitian for T2DM and obesity. Pt presenting for refresher on nutritional management with diabetes. Ozempic helped with BG, but not with wt loss, was switched to Mounjaro 5-6 wks ago, has since lost 8 lb. Reduced food noise, for the first time not overwhelmed by food thoughts/cravings/appetite. Hx of doing whole 30 and vegan diet to help reduce sugar craving. GI symptoms: denies any symptoms, regular BMs Diet Recall: B-coffee with milk, skipping breakfast now but before was doing egg or cottage cheese L-salad, snack pack from [employer], or cottage cheese and orange, sometimes skipping D-cooking - taco salad bowls, usually 6 oz meat/chk Reports will sometimes do larger portions of chips/sweets i.e. 2 bags of fritos Fluids: water, unsure oz 02/18/25 Height 5 ft 7 in Weight 233 lb BMI 36.5 : Activity: 3 mile walk on Sunday, 20 min bike ride 2x/wk, 30 min weight training 1x/wk -activity started end of October Pertinent Labs: 6.4% A1c, 223 TG, TC 154, LDL 72, HDL 37 Nutrition Diagnosis:? Inadequate protein and fiber intake r/t skipping meal aeb diet recall with sometimes only 1 meal daily Altered nutrition related lab values (A1c) r/t endocrine dysfunction aeb A1c 6.4% Interventions:? Discussed and provided appropriate resources on the following: -Balanced meals and snacks in line with myplate, Mediterranean style of eating -Portion sizing -Education on label reading -Brief overview on iIntuitive eating principals/practice -Assessing hunger/fullness level -Refresher on plate method, impact of macronutrients on blood sugar, meal timing, carbohydrate counting, pairing macronutrients and spreading out carbohydrates for better blood glucose management -Recommended servings for carbohydrates at meals and snacks -Fiber, amounts, types -Physical activity -Lab values and correlation with nutrition -Brainstormed appropriate meal plan based on food preferences Goals: -Eat breakfast daily- cottage cheese and orange, eggs and fruit -Eat lunch daily- monitor sat. fat in snack packs EER:? 65-80 g protein daily (18%kcals of [id number] vs 1g/kg of adjusted IBW), 25 g fiber Monitoring/Evaluations:? F/u in 1 month Electronically Signed by: Jovanna Phelps Clinical Dietitian [address] [id number]
== END ==
PROVIDERS: PCP Family Medicine; Referring Provider Family Medicine
DX: E11.9 Type 2 diabetes mellitus without complications (principal); E66.9 Obesity, unspecified; Z71.3 Dietary counseling and surveillance; Z68.36 Body mass index [BMI] 36.0-36.9, adult
CPT/HCPCS: 97802

== ENCOUNTER → 2025-04-10 09:42 | Outpatient (CLI) | payer BC, SELFPAY ==
[2025-01-12 13:32] VITALS: BMI 36.8
[2025-04-10 10:28] LABS: Hemoglobin A1C% w Est Avg Glu 6.2 % (4.0-6.0)
== END ==
PROVIDERS: PCP Family Medicine; Referring Provider Family Medicine; Visit Provider Family Medicine
DX: E11.65 Type 2 diabetes mellitus with hyperglycemia (principal)
CPT/HCPCS: 36415; 83036

== ENCOUNTER → 2025-07-14 07:37 | Outpatient (CLI) | payer BC, SELFPAY ==
[2025-01-12 13:32] VITALS: BMI 36.8
[2025-07-14 08:39] LABS: Hemoglobin A1C% w Est Avg Glu 5.9 % (4.0-6.0)
[2025-07-14 08:42] LABS: Blood Urea Nitrogen 14 mg/dL (7-17); Calcium 9.1 mg/dL (8.4-10.2); Carbon Dioxide 24 mmol/L (22-32); Chloride 107 mmol/L (98-107); Estimated Glomerular Filt Rate > 60 mL/min (>60); Glucose 129 mg/dL (70-99); HEMOLYSIS < 15 (0-50); Potassium 4.5 mmol/L (3.4-5.1); Sodium 141 mmol/L (137-145)
== END ==
PROVIDERS: PCP Family Medicine; Referring Provider Family Medicine; Visit Provider Family Medicine
DX: E78.2 Mixed hyperlipidemia (principal); I10 Essential (primary) hypertension; E11.65 Type 2 diabetes mellitus with hyperglycemia
CPT/HCPCS: 36415; 80048; 83036